=== PATIENT | female | born 1970 | race Caucasian/White ===

== ENCOUNTER 2021-09-22 12:17 | Outpatient (RCR) | payer BC, SELFPAY ==
[2021-09-22 12:33] VITALS: BP 133/88; PULSE 74; RESP 16; TEMP 36.4; O2SAT 97
[2021-09-22] MEDS: INFLIXIMAB IV (13:37)
[2021-09-22] MEDS: [UNRECOGNIZED DRUG - OTHER] IV (13:37)
[2021-09-22] MEDS: TUBING PRIMARY IV (13:37)
[2021-09-22 13:57] VITALS: BP 110/66; PULSE 74; RESP 16; TEMP 36.3; O2SAT 97
[2021-09-22 14:15] VITALS: BP 107/64; PULSE 76; RESP 16; TEMP 36.6; O2SAT 98
[2021-09-22 14:47] VITALS: BP 106/66; PULSE 75; RESP 18; TEMP 36.7; O2SAT 97
--- NOTE | 2021-09-23 10:38 | ONC.NURNOTE ---
Pt here for Remicade on 09/22/21, pt has had intentional weight loss. Ordered dose is 400mg, based on current weight, remicade dose would be 325mg. This would be rounded down to 300mg. Cost Clerk called and spoke to Dr. Mendes's office to clarify dose pt should receive. Per Dr. Mendes, pt to receive 400mg IV on 09/22/21. Future orders for remicade placed on hold as pt has an appt with Dr. Mendes on 10/04/2021.
== END 2021-10-16 23:59 | disposition home or self-care (01) ==
LOC: CCIC 12:17
PROVIDERS: PCP Family Medicine; Visit Provider Clinical Nurse Specialist
DX: K50.90 Crohn's disease, unspecified, without complications (principal)
CPT/HCPCS: 96413; 96415; J7050

== ENCOUNTER 2022-03-23 13:00 | Outpatient (RCR) | payer BC, SELFPAY ==
--- NOTE | 2021-11-14 08:36 | ONC.NURNOTE ---
Authorization: User: Shruthi AllenFer Savanah Date: 03/30/21 13:05 Type: Eligibility Determination Note... Per Dede Breaux at [facility], prior authorization is not required for the administration of Remicade ([id number]). Call ref # [id number] Remicade will be obtained from Specialty Pharmacy.
[2021-11-17 13:22] VITALS: BP 109/60; PULSE 98; RESP 16; TEMP 36.3; O2SAT 96
[2021-11-17] MEDS: TUBING PRIMARY IVPB (14:39)
[2021-11-17] MEDS: INFLIXIMAB IVPB (14:39)
[2021-11-17] MEDS: [UNRECOGNIZED DRUG - OTHER] IVPB (14:39)
[2021-11-17 15:02] VITALS: BP 97/64; PULSE 79; RESP 16; TEMP 36.9; O2SAT 98
[2021-11-17 15:31] VITALS: BP 91/52; PULSE 79; RESP 16; TEMP 36.7; O2SAT 98
[2021-11-17 15:51] VITALS: BP 108/54; PULSE 75; RESP 20; TEMP 36.7; O2SAT 97
[2021-11-17 16:35] VITALS: BP 107/67; PULSE 78; RESP 16; TEMP 37; O2SAT 98
--- NOTE | 2021-11-17 16:44 | ONC.NURNOTE ---
Pt here for Remicade. Clarified with Cinthya's office okay to treat with Remicade dose of 400mg despite weight loss. See documentation in chart from Cinthya's office. Pt has an appt with Cinthya in January for follow up. Continue same dose until then.
[2022-01-26 13:13] VITALS: BP 109/64; PULSE 93; RESP 16; TEMP 36.4; O2SAT 97
[2022-01-26] MEDS: [UNRECOGNIZED DRUG - OTHER] IV (13:45)
[2022-01-26] MEDS: TUBING PRIMARY IV (13:45)
[2022-01-26] MEDS: INFLIXIMAB IV (13:45)
[2022-01-26 14:05] VITALS: BP 96/66; PULSE 97; RESP 16; TEMP 36.7; O2SAT 97
[2022-01-26 14:20] VITALS: BP 94/60; PULSE 80; RESP 16; TEMP 36.9; O2SAT 98
[2022-01-26 14:50] VITALS: BP 99/64; PULSE 81; RESP 18; TEMP 36.8
[2022-01-26 15:31] VITALS: BP 94/62; PULSE 77; RESP 18; TEMP 36.7; O2SAT 97
--- NOTE | 2022-03-02 11:39 | URNOTE ---
Prior authorization is not required for administration of Infliximab. Medication is obtained from Specialty Pharmacy.
[2022-03-23 13:09] VITALS: BP 113/77; PULSE 83; RESP 16; TEMP 35.9; O2SAT 98
[2022-03-23] MEDS: INFLIXIMAB IVPB (13:37)
[2022-03-23] MEDS: TUBING PRIMARY IVPB (13:37)
[2022-03-23] MEDS: [UNRECOGNIZED DRUG - OTHER] IVPB (13:37)
[2022-03-23 13:59] VITALS: BP 111/61; PULSE 75; RESP 14; TEMP 36.1; O2SAT 98
[2022-03-23 14:15] VITALS: BP 107/73; PULSE 75; RESP 16; TEMP 36; O2SAT 98
[2022-03-23 14:46] VITALS: BP 103/60; PULSE 79; RESP 16; TEMP 36.1; O2SAT 96
[2022-03-23 15:34] VITALS: BP 104/71; PULSE 80; RESP 16; TEMP 36.1; O2SAT 99
== END 2022-05-16 23:59 | disposition home or self-care (01) ==
LOC: CCIC 13:00
PROVIDERS: PCP Family Medicine; Referring Provider Family Medicine; Visit Provider Clinical Nurse Specialist
DX: K50.90 Crohn's disease, unspecified, without complications (principal)
CPT/HCPCS: 96413; 96415; J2795; J7050

== ENCOUNTER 2022-09-21 13:00 | Outpatient (RCR) | payer BC, SELFPAY ==
[2022-05-18 13:08] VITALS: BP 128/73; PULSE 91; RESP 16; TEMP 36.3; O2SAT 98
[2022-05-18] MEDS: 0.9 % SODIUM CHLORIDE 250 ml 250 ML 30 ML IV (13:34)
[2022-07-20 13:07] VITALS: BP 124/85; PULSE 101; RESP 16; TEMP 36.3; O2SAT 96
[2022-07-20] MEDS: TUBING PRIMARY IVPB (13:45)
[2022-07-20] MEDS: [UNRECOGNIZED DRUG - OTHER] IVPB (13:45)
[2022-07-20] MEDS: INFLIXIMAB IVPB (13:45)
[2022-07-20 14:05] VITALS: BP 122/73; PULSE 92; RESP 16; TEMP 36.8; O2SAT 97
[2022-07-20 14:57] VITALS: BP 124/80; PULSE 88; RESP 16; TEMP 36.6; O2SAT 96
[2022-07-20 15:45] VITALS: BP 131/82; PULSE 86; RESP 16; TEMP 36.7; O2SAT 98
[2022-09-21 13:09] VITALS: BP 113/71; PULSE 88; RESP 16; TEMP 35.7; O2SAT 97
[2022-09-21] MEDS: 0.9 % SODIUM CHLORIDE 250 ml 250 ML 35 ML IV (13:10)
[2022-09-21] MEDS: TUBING PRIMARY IVPB (13:42)
[2022-09-21] MEDS: INFLIXIMAB IVPB (13:42)
[2022-09-21] MEDS: [UNRECOGNIZED DRUG - OTHER] IVPB (13:42)
[2022-09-21 14:00] VITALS: BP 102/68; PULSE 87; RESP 16; TEMP 36.6; O2SAT 98
[2022-09-21 14:17] VITALS: BP 119/63; PULSE 75; RESP 18; TEMP 36.3; O2SAT 96
[2022-09-21 14:50] VITALS: BP 95/67; PULSE 80; RESP 18; TEMP 36.7; O2SAT 96
[2022-09-21 15:38] VITALS: BP 119/75; PULSE 76; RESP 18; TEMP 36.2; O2SAT 98
== END 2022-11-14 23:59 | disposition home or self-care (01) ==
LOC: CCIC 13:00
PROVIDERS: PCP Family Medicine; Referring Provider Family Medicine; Visit Provider Clinical Nurse Specialist
DX: K50.90 Crohn's disease, unspecified, without complications (principal)
CPT/HCPCS: 96413; 96415; J7050

== ENCOUNTER 2023-03-23 13:00 | Outpatient (RCR) | payer BC, SELFPAY ==
[2022-11-23 13:17] VITALS: BP 136/78; PULSE 84; RESP 16; TEMP 36.3; O2SAT 99
[2022-11-23] MEDS: [UNRECOGNIZED DRUG - OTHER] IV (13:47)
[2022-11-23] MEDS: INFLIXIMAB IV (13:47)
[2022-11-23] MEDS: TUBING PRIMARY IV (13:47)
[2022-11-23 14:05] VITALS: BP 108/69; PULSE 84; RESP 16; TEMP 36.9; O2SAT 98
[2022-11-23 14:25] VITALS: BP 112/77; PULSE 83; RESP 16; TEMP 36.8; O2SAT 99
[2022-11-23 14:58] VITALS: BP 121/70; PULSE 82; RESP 16; TEMP 36.9; O2SAT 99
[2022-11-23 15:38] VITALS: BP 113/78; PULSE 85; RESP 16; TEMP 37.1; O2SAT 98
--- NOTE | 2022-11-23 15:51 | ONC.NURNOTE ---
Patient tolerated Remicade without difficulties. Faxed Remicade assessment to Dr. Mendes. Next appointment set up.
--- NOTE | 2023-01-18 08:39 | ONC.NURNOTE ---
Received call from pharmacy stating pt's drug did not arrive yesterday as planned. Per pharmacy, PA may have . Excel Specialist called and spoke to Veronica in Dr. Mendes's office with update. She is going to call [facility] Specialty pharmacy for next steps. Pt notified that drug did not arrive.
--- NOTE | 2023-01-18 09:51 | ONC.NURNOTE ---
Received call from Veronica with Dr. Mendes stating that patient will be seeing Dr. Mendes and then they will submit a new PA and expedite it since the old one was cancelled out and patient late for infusion. Dr. Mendes's office will call when new PA in effect.
--- NOTE | 2023-01-25 08:52 | ONC.NURNOTE ---
Addendum entered by Geneva Campos RN 01/25/23 10:17: Physical Education Department Chair called [facility] specialty pharmacy to confirm delivery of medication for 01/26/23. Left message for pt to call and schedule infusion. Original Note: Received call from Dr. Mendes's office stating a PA was done. Approval #[id number], approved 01/18/2023-01/19/2024. Physical Education Department Chair will update pharmacy to contact [facility] specialty pharmacy to set up delivery.
[2023-01-26 13:38] VITALS: BP 133/75; PULSE 93; RESP 18; TEMP 36.4; O2SAT 97
[2023-01-26] MEDS: [UNRECOGNIZED DRUG - OTHER] IV (13:57)
[2023-01-26] MEDS: TUBING PRIMARY IV (13:57)
[2023-01-26] MEDS: INFLIXIMAB IV (13:57)
[2023-01-26 14:31] VITALS: BP 137/80; PULSE 92; RESP 18; TEMP 36.4; O2SAT 95
[2023-01-26 14:35] VITALS: BP 108/73; PULSE 92; RESP 16; TEMP 36.1; O2SAT 96
[2023-01-26 15:08] VITALS: BP 112/67; PULSE 93; RESP 16; TEMP 36.8; O2SAT 97
--- NOTE | 2023-03-01 09:41 | URNOTE ---
Prior authorization is not required for administration of Infliximab. Medication is obtained from Specialty Pharmacy.
[2023-03-23 13:15] VITALS: BP 120/76; PULSE 81; RESP 16; TEMP 35.8; O2SAT 99
[2023-03-23] MEDS: INFLIXIMAB IV (13:46)
[2023-03-23] MEDS: TUBING PRIMARY IV (13:46)
[2023-03-23] MEDS: [UNRECOGNIZED DRUG - OTHER] IV (13:46)
[2023-03-23 14:23] VITALS: BP 112/78; PULSE 79; RESP 16; TEMP 36.3; O2SAT 95
[2023-03-23] MEDS: 0.9 % SODIUM CHLORIDE 250 ml 250 ML 35 ML IV (14:56)
== END 2023-05-22 23:59 | disposition home or self-care (01) ==
LOC: CCIC 13:00
PROVIDERS: PCP Family Medicine; Referring Provider Family Medicine; Visit Provider Clinical Nurse Specialist
DX: K50.90 Crohn's disease, unspecified, without complications (principal)
CPT/HCPCS: 96413; 96415; J7050

== ENCOUNTER 2023-09-19 13:00 | Outpatient (RCR) | payer BC, SELFPAY ==
[2023-05-25 13:19] VITALS: BP 125/86; PULSE 92; RESP 16; TEMP 36.1; O2SAT 96
[2023-05-25] MEDS: TUBING PRIMARY IV (13:44)
[2023-05-25] MEDS: [UNRECOGNIZED DRUG - OTHER] IV (13:44)
[2023-05-25] MEDS: INFLIXIMAB IV (13:44)
[2023-05-25 14:20] VITALS: BP 103/66; PULSE 83; RESP 16; TEMP 36.3; O2SAT 96
[2023-05-25 14:55] VITALS: BP 127/75; PULSE 86; RESP 16; TEMP 36.2; O2SAT 95
[2023-05-25 15:50] VITALS: BP 110/61; PULSE 79; RESP 16; TEMP 36.3; O2SAT 98
[2023-07-20 13:14] VITALS: BP 134/79; PULSE 90; RESP 16; TEMP 37; O2SAT 98
[2023-07-20] MEDS: [UNRECOGNIZED DRUG - OTHER] IV (13:50)
[2023-07-20] MEDS: TUBING PRIMARY IV (13:50)
[2023-07-20] MEDS: INFLIXIMAB IV (13:50)
[2023-07-20 14:10] VITALS: BP 120/83; PULSE 96; RESP 16; TEMP 36.6; O2SAT 97
[2023-07-20 14:30] VITALS: BP 113/74; PULSE 90; RESP 16; TEMP 36.5; O2SAT 94
[2023-07-20 14:58] VITALS: BP 105/68; PULSE 84; RESP 16; TEMP 36.3; O2SAT 94
[2023-09-19 13:15] VITALS: BP 121/76; PULSE 90; RESP 16; TEMP 36.3; O2SAT 97
[2023-09-19] MEDS: [UNRECOGNIZED DRUG - OTHER] IVPB (13:43)
[2023-09-19] MEDS: TUBING PRIMARY IVPB (13:43)
[2023-09-19] MEDS: 0.9 % SODIUM CHLORIDE 250 ml 250 ML 35 ML IV (13:43)
[2023-09-19] MEDS: INFLIXIMAB IVPB (13:43)
[2023-09-19 14:01] VITALS: BP 105/70; PULSE 84; RESP 16; TEMP 36.6; O2SAT 94
[2023-09-19 14:16] VITALS: BP 98/63; PULSE 82; RESP 16; TEMP 36.1; O2SAT 95
[2023-09-19 14:49] VITALS: BP 110/75; PULSE 85; RESP 16; TEMP 36.3; O2SAT 96
--- NOTE | 2023-09-19 15:25 | ONC.NURNOTE ---
Faxed Remicade assessment to Dr. Mendes. Next appointment scheduled.
[2023-09-19 15:36] VITALS: BP 109/72; PULSE 77; RESP 16; TEMP 36.2; O2SAT 98
== END 2023-11-21 23:59 | disposition home or self-care (01) ==
LOC: CCIC 13:00
PROVIDERS: PCP Family Medicine; Referring Provider Family Medicine; Visit Provider Clinical Nurse Specialist
DX: K50.90 Crohn's disease, unspecified, without complications (principal)
CPT/HCPCS: 96365; 96413; 96415; J7050

== ENCOUNTER 2024-03-28 13:00 | Outpatient (RCR) | payer BC, SELFPAY ==
[2023-11-22 12:49] VITALS: BP 120/80; PULSE 90; RESP 16; TEMP 36.2; O2SAT 96
[2023-11-22] MEDS: INFLIXIMAB IV (13:39)
[2023-11-22] MEDS: [UNRECOGNIZED DRUG - OTHER] IV (13:39)
[2023-11-22] MEDS: TUBING PRIMARY IV (13:39)
[2024-01-24 13:15] VITALS: BP 115/80; PULSE 75; RESP 16; TEMP 36.1; O2SAT 98
[2024-01-24] MEDS: [UNRECOGNIZED DRUG - OTHER] IV (13:50)
[2024-01-24] MEDS: INFLIXIMAB IV (13:50)
[2024-01-24] MEDS: TUBING PRIMARY IV (13:50)
[2024-01-24 14:13] VITALS: O2SAT 97
--- NOTE | 2024-03-24 15:57 | URNOTE ---
Prior authorization is not required for administration of Infliximab. Medication is obtained from Specialty Pharmacy- [facility] to [facility] PA for specialty Pharmacy is active 01-17-24 to 12-24-24 per Rep Kristyn Allen 03/24/2024 at 1555pm.
[2024-03-28 13:13] VITALS: BP 114/71; PULSE 91; RESP 14; TEMP 36.3; O2SAT 96
[2024-03-28] MEDS: INFLIXIMAB IV (13:45)
[2024-03-28] MEDS: TUBING PRIMARY IV (13:45)
[2024-03-28] MEDS: [UNRECOGNIZED DRUG - OTHER] IV (13:45)
== END 2024-05-20 23:59 | disposition home or self-care (01) ==
LOC: CCIC 13:00
PROVIDERS: PCP Family Medicine; Referring Provider Family Medicine; Visit Provider Clinical Nurse Specialist
DX: K50.90 Crohn's disease, unspecified, without complications (principal)
CPT/HCPCS: 96413; 96415; J1745; J7050

== ENCOUNTER 2024-07-29 08:30 | Outpatient (RCR) | payer BC, SELFPAY ==
[2024-05-22 13:08] VITALS: BP 127/83; PULSE 94; RESP 16; TEMP 36.4; O2SAT 96
[2024-05-22] MEDS: [UNRECOGNIZED DRUG - OTHER] IV (13:25)
[2024-05-22] MEDS: INFLIXIMAB IV (13:25)
[2024-05-22] MEDS: TUBING PRIMARY IV (13:25)
[2024-05-22 13:46] VITALS: BP 114/76; PULSE 95; RESP 16; TEMP 36.6; O2SAT 96
[2024-05-22 14:40] VITALS: BP 113/75; PULSE 16; RESP 16; TEMP 36.5; O2SAT 96
[2024-07-29 08:33] VITALS: BP 144/75; PULSE 81; RESP 18; TEMP 35.9; O2SAT 96
[2024-07-29] MEDS: [UNRECOGNIZED DRUG - OTHER] IV (09:06)
[2024-07-29] MEDS: INFLIXIMAB IV (09:06)
[2024-07-29] MEDS: TUBING PRIMARY IV (09:06)
[2024-07-29] MEDS: SODIUM CHLORIDE 0.9 % (FLUSH) 10 ML SYRINGE IVF (09:07)
== END 2024-11-18 23:59 | disposition home or self-care (01) ==
LOC: CCIC 08:30
PROVIDERS: PCP Family Medicine; Referring Provider Family Medicine; Visit Provider Clinical Nurse Specialist
DX: K50.90 Crohn's disease, unspecified, without complications (principal)
CPT/HCPCS: 96413; J1745; J7050

== ENCOUNTER 2024-08-13 19:54 | Observation (INO) | payer BC, SELFPAY ==
[2024-08-13] VITALS (16 sets, daily range): BP systolic 114–140; BP diastolic 63–90; PULSE 86–114; RESP 20–22; TEMP 36.4–37.1; O2SAT 91–100; BMI 32.1
--- OUTSIDE RECORDS SUMMARY | 2024-08-13 19:56 | XMS_ITS | Clinical Summary ---
Author Organization [facility] Address [address] [place] [address] Care Team Providers Care Learning Coach Name Role Phone No Contact, Pcp Primary Care Provider Unavailabl e Source Comments Patient records contain information from all sites at [facility]. For routine questions regarding patient records, call [phone] during business hours, M-F 8:00 AM - 5:00 PM Central Time. Record requests for emergency care only can be directed to [phone] at any time.[facility] Allergies Active Allergy Reactions Criticality Noted Date Comments Adhesive Other (see comments) 06/15/2016 ADHESIVE TAPE. Blisters w/ steri-strips Cephalexin Hives (Reselect Reaction) 06/15/2016 CEPHALEXIN MONOHYDRATE Ciprofloxacin Hives (Reselect Reaction) 06/15/2016 CIPROFLOXACIN Latex Other (see comments) 09/21/2004 broke out from steri stripes and bandaides question if adhesives or latex Morphine Hives (Reselect Reaction) 06/15/2016 MORPHINE Sulfa (Sulfonamide Antibiotics) Diarrhea High 09/21/2004 Medications * This document contains information received from the source organization and may not represent a complete record from that organization. inFLIXimab (REMICADE) 10 mg/mL injection Remicade 100 mg intravenous injection See Instructions, 5 MG/KG INTRAVENOUSLY EVERY 8 WEEKS 4 Active valACYclovir (VALTREX) 500 mg tablet Take 500 mg by mouth. 7 Active mesalamine (CANASA) 1,000 mg suppository Insert 1,000 mg into the rectum. 7 Active biotin-silicon trwn-R-uhyapvsa 5,000 mcg -10 mg-50 mg tablet extended release Take by mouth. 7 Active vit P-J4-hnxdytwmdk blayne-vit K 2,000 unit- 2,000 mcg/mL liquid Take by mouth. 7 Active minoxidil (ROGAINE) 5 % topical foam Apply 1 application topically daily. Active spironolactone (ALDACTONE) 25 mg tablet Take 25 mg by mouth daily. Active gabapentin (NEURONTIN) 300 mg capsule Take 1 capsule by mouth daily. 2 Active naproxen (NAPROSYN) 500 mg tabletIndicatio ns:Injury Shoulder Initial Right,History Of Falling Take 1 tablet (500 mg total) by mouth 2 (two) times a day as needed for pain (pain). 20 tablet 3 Active nystatin (NYSTOP) 100,000 unit/gram powder Apply 1 strip topically. 3 Active estradioL (ESTRACE) 0.5 mg tablet Take 0.5 mg by mouth. 3 Active lidocaine (LIDODERM) 5 % adhesive patch,medicated Place 1 patch on the skin daily. Apply to right shoulder. 30 patch 4 Active Additional Information Patient not taking.Reported on 06/25/2023 ketoconazole (Nizoral) 2 % creamIndication s:Intertrigo Apply 1 Application topically 2 (two) times a day. Apply to rash. 60 g 5 Active Active Problems Problem Noted Date Diagnosed Date Pain Shoulder Right 11/13/2019 Overview (11/13/2019): Added automatically from request for surgery [id number] Rotator Cuff Disorder Right 11/13/2019 Overview (11/13/2019): Added automatically from request for surgery [id number] Numbness Hand Pain Wrist Right Crohn's Disease Immunizations Immunization Administration Dates Next Due H1N1 Inj 01/13/2009 Influenza TIV (IM) 12/17/2018,12/17/2011, 004 Influenza, Injectable, Quadrivalent 01/17/2017 Influenza, Unspecified 12/24/2015,2014,12/17/2013,2012 MMR 08/02/1989 PCV13 01/30/2014 PPSV23 02/13/2012,03/19/2004 SARS-COV-2 (COVID-19) - MODE RNA (12 YEARS AND OLDER) Fall Seasonal 01/24/2024 SARS-COV-2 (COVID-19) - PFIZ ER (Discontinued)(12 years or older) 12/09/2020,04/30/2020,04/08/2020 Tdap 02/13/2012 influenza trivalent vaccine (6 months and older)(PF) 01/01/2024 influenza vaccine quad (FLUZONE/FLUARIX) (6 months and older)(PF) 01/17/2023,01/19/2022,12/22/2020,2018,01/17/2017 Family History Medical History Relation Name Comments Anesthesia problems Neg Hx Social History Tobacco Use Types Packs/Day Years Used Date Smoking Tobacco: Never Smokeless Tobacco: Never Tobacco Cessation:Counseling Given: Not Answered Alcohol Use Standard Drinks/Week Comments Not Currently 0 (1 standard drink = 0.6 oz pur e alcohol) Humiliation, Afraid, Rape, and Kick questionnair e Answer Date Recorded Within the last year, have y ou been afraid of your partner or ex-partner? No 12/21/2019 Within the last year, have y ou been humiliated or emotionally abused in other ways by your partner or ex-partner? No Within the last year, have y ou been kicked, hit, slapped, or otherwise physically hurt by your partner or ex-partner? No 12/21/2019 Within the last year, have y ou been raped or forced to have any kind of sexual activity by your partner or ex-partner? No 12/21/2019 Social Connection and Isolation Panel [NHANES] A nswer Date Recorded In a typical week, how many times do you talk on the phone with family, friends, or neighbors? Patient declined 12/21/2019 How often do you get togethe r with friends or relatives? Patient declined 12/21/2019 How often do you attend mormon or jewish serv ices? Patient declined 12/21/2019 Do you belong to any clubs o r organizations such as mormon groups, unions, fraternal or athletic groups, or school groups? Patient declined 12/21/2019 How often do you attend meet ings of the clubs or organizations you belong to? Patient declined 12/21/2019 Are you , , di vorced, , never , or living with a partner? 12/21/2019 AUDIT-C Answer Date Recorded Q1: How often do you have a drink containing alc ohol? Monthly or less 12/21/2019 Q2: How many drinks containi ng alcohol do you have on a typical day when you are drinking? 1 or 2 12/21/2019 Q3: How often do you have si x or more drinks on one occasion? Never 12/21/2019 Overall Financial Resource Strain (CARDIA) Answe r Date Recorded How hard is it for you to pa y for the very basics like food, housing, medical care, and heating? Not hard at all 12/21/2019 PHQ-2 Answer Date Recorded PHQ-2 Score 0 11/17/2019 [facility] - Occupational Stress Questionnaire Answer Date Recorded Do you feel stress - tense, restless, nervous, or anxious, or unable to sleep at night because your mind is troubled all the time - these days? Not at all 12/21/2019 Exercise Vital Sign Answer Date Recorde d On average, how many days pe r week do you engage in moderate to strenuous exercise (like a brisk walk)? 0 days On average, how many minutes do you engage in exercise at this level? Patient declined 12/21/2019 Hunger Vital Sign Answer Date Recorded Within the past 12 months, y ou worried that your food would run out before you got the money to buy more. Never true 12/21/19 20 Within the past 12 months, t he food you bought just didn't last and you didn't have money to get more. Never true 12/21/2019 PRAPARE - Transportation Answer Date Re corded In the past 12 months, has l ack of transportation kept you from medical appointments or from getting medications? No 06/2019 In the past 12 months, has l ack of transportation kept you from meetings, work, or from getting things needed for daily living? No 12/21/2019 Nutrition Answer Date Recorded Nutrition: EVOO Fat Source Yes 12/20 On average, how many serving s of fruits and vegetables do you eat per day (serving size is equal to 1 cup or approximately the size of a tennis ball)? 2-3 12/21/2019 Dental Answer Date Recorded Dental: Regular Dentist Unknown 12/22/19 Education Answer Date Recorded What is the highest level of school you have completed or the highest degree you have received? Associate degree: occupational, technical, or vocational program 12/21/2019 Comments No Sex and Gender Information Value Date Recorded Sex Assigned at Not on file Legal Sex Female 6:24 PM GAS USAGE METER CLERK Gender Identity Not on file Sexual Orientation Not on file Last Filed Vital Signs Vital Sign Reading Time Taken Comments Blood Pressure 125/79 01/31/2024 3:35 PM GAS USAGE METER CLERK Pulse 80 01/31/2024 3:35 PM GAS USAGE METER CLERK Temperature 36.3 C (97.3 F) 01/31/2024 2:36 PM GAS USAGE METER CLERK Respiratory Rate 19 01/31/2024 3:35 PM GAS USAGE METER CLERK Oxygen Saturation 99% 01/31/2024 3:35 PM GAS USAGE METER CLERK Inhaled Oxygen Concentration - - Weight 73.7 kg (162 lb 7.7 oz) 11/15/2022 8:31 A M CDT Height 160 cm (5' 2.99) 06/15/2022 10:34 AM CDT Body Mass Index 28.79 06/15/2022 10:34 AM CDT Plan of Treatment Health Maintenance Due Date Last Done Comments CT Colonography 1968 Cologuard 1968 HIV Screening 1968 Hepatitis C Screening 1968 Hepatitis B Vaccines (1 of 3 - 19+ 3-dose series) 1987 Zoster Vaccines (1 of 2) 1987 Pneumococcal vaccine (50+ years) (4 of 4 - PCV20 or PCV21) 01/30/2019 01/30/2014, 02/13/2012, 03/19/2004 Depression Screening (Annual PHQ-2) 03/19/2024 COVID-19 Vaccine (6 - Pfizer risk 2023- season) 2024 01/24/2024, 10/06/2021, 12/09/2020, Additional history exists Mammogram 09/11/2024 09/12/2023, 07/0 05/2022, 09/16/2021, Additional history exists Colonoscopy 10/04/2026 10/04/2021 Colorectal Cancer Surveillance 10/04/2026 Fasting Glucose for Diabetes Screening 01/01/2027 01/02/2024, 01/02/2024, 11/01/2022, Additional history exists Lipid (Cholesterol) Screening 01/01/2029 01/02/2024, 02/24/2021 DTaP,Tdap,and Td Vaccines (3 - Td or Tdap) 10/03/2033 10/04/2023, 02/13/2012 Influenza Vaccine Completed 01/01/2024, , 01/19/2022, Additional history exists HPV Vaccines Aged Out No longer eligi ble based on patient's age to complete this topic IPV Vaccines Aged Out No longer eligi ble based on patient's age to complete this topic Medical Devices Implanted Type Area Ore Fielder Device Identifier Shelf Expiration Date Model / Serial / Lot Anna Sut Ftp 4.5 - [id number] Implanted:Qty: 1 on 11/26/2019 by Deepak Carr M.D. at [facility] Hardware e.g. pins/screw s/rods Right: Shoulder [employer] 08/22/2024 [id number] / / [id number] Anna Sut [facility] Dbl 4.75 - [id number] Implanted:Qty: 1 on 11/26/2019 by Deepak Carr M.D. at [facility] Hardware e.g. pins/screw s/rods Right: Shoulder [employer] 09/18/2022 [id number] / / [id number] Anna Sut Hl Dbl 4.75 - [id number] Implanted:Qty: 1 on 11/26/2019 by Deepak Carr M.D. at [facility] Hardware e.g. pins/screw s/rods Right: Shoulder [employer] 09/18/2022 [id number] / / [id number] Anna Sut Ftp 4.5 - [id number] Implanted:Qty: 1 on 11/26/2019 by Deepak Carr M.D. at [facility] Hardware e.g. pins/screw s/rods Right: Shoulder [employer] 05/16/2024 [id number] / / [id number] Anna Sut [facility] Dbl 4.75 - [id number] Implanted:Qty: 1 on 11/23/2021 by Deepak Carr M.D. at [facility] Hardware e.g. pins/screw s/rods Right: Shoulder [employer] 11/26/2023 [id number] / / [id number] Anch Sut [facility] Dbl 4.75 - [id number] Implanted:Qty: 1 on 11/23/2021 by Deepak Carr M.D. at [facility] Hardware e.g. pins/screw s/rods Right: Shoulder [employer] 07/09/2024 [id number] / / [id number] Anch Bn Arth Del Sys - [id number] Implanted:Qty: 1 on 11/15/2022 by Deepak Carr M.D. at [facility] Hardware e.g. pins/screw s/rods Right: Shoulder [employer] [id number] 01/08/2025 [id number] / / [id number] Anch Tndn Rgn Stpl - [id number] Implanted:Qty: 1 on 11/15/2022 by Deepak Carr M.D. at [facility] Hardware e.g. pins/screw s/rods Right: Shoulder [employer] [id number] 06/02/2023 [id number] / / [id number] Healicoil Knotless Regnesorb Suture [place] 5.5mm Implanted:Qty: 1 on 11/23/2021 by Deepak Carr M.D. at [facility] Shoulder Implant Right: Shoulder [employer] [id number] 09/30/2024 [id number] / / [id number] Healicoil Knotless Regnesorb Suture [place] 5.5mm Implanted:Qty: 1 on 11/23/2021 by Deepak Carr M.D. at [facility] Shoulder Implant Right: Shoulder [employer] [id number] 09/30/2024 [id number] / / [id number] Healicoil Knotless Regnesorb Suture [place] 5.5mm Implanted:Qty: 1 on 11/23/2021 by Deepak Carr M.D. at [facility] Shoulder Implant Right: Shoulder [employer] [id number] 09/30/2024 [id number] / / [id number] Mini Open Bioinductive Implant, Large Implanted:Qty: 1 on 11/15/2022 by Deepak Carr M.D. at [facility] Shoulder Implant Right: Shoulder [employer] 01/08/2025 [id number] / / [id number] Procedures Procedure Name Priority Date/Time Associated Diagnosis Comments HEMOGLOBIN A1C, B Routine 01/02/2024 7:0 1 AM CDT Gain Weight Nutritional Disorder Screening Exam Obesity, Class 1 Body Mass Index 31.0 To 31.9 Adult LIPID PANEL, S Routine 01/02/2024 7:01 AM CDT Gain Weight Nutritional Disorder Screening Exam Obesity, Class 1 Body Mass Index 31.0 To 31.9 Adult BI BREAST SCREENING BILATERAL WITH TOMOSYNTHESIS RAD - Routine (most inpatients and all outpatients) 09/12/2023 12:57 PM CDT Screening Mammogram Average Risk Patient from Last 3 Months or Most Recently Relevant to Health Maintenance Results * (ABNORMAL) Lipid Panel (01/02/2024 7:01 AM CDT) Triglycerides 152(H) mg/dL 01/02/2024 7:36 AM CDT [facility] Comment: ----REFERENCE VALUE---- Normal: <150 mg/dL Borderline High: 150-199 mg/dL High: 200-499 mg/dL Very High: > or =500 mg/dL Cholesterol, Total 170 mg/dL 2023 7:36 AM CDT [facility] Comment: ----REFERENCE VALUE---- Desirable: < 200 mg/dL Borderline High: 200 - 239 mg/dL High: > or = 240 mg/dL Cholesterol, LDL, Calculated 89 mg/dL 01/02/2024 7:36 AM CDT [facility] Comment: ----REFERENCE VALUE---- Desirable: <100 mg/dL Above Desirable: 100-129 mg/dL Borderline High: 130-159 mg/dL High: 160-189 mg/dL Very High: >=190 mg/dL ----ADDITIONAL INFORMATION---- LDL cholesterol calculated using the Hines/NIH equation. Cholesterol, HDL 55 >=50 mg/dL 01/02/20 7:36 AM CDT [facility] Cholesterol, Non-HDL, Calculated 115 mg/dL 01/02/2024 7:36 AM CDT [facility] Comment: ----REFERENCE VALUE---- Desirable: <130 mg/dL Above Desirable: 130-159 mg/dL Borderline High: 160-189 mg/dL High: 190-219 mg/dL Very High: > or =220 mg/dL Fasting (8 HR or more) Yes 01/02/2024 7:01 AM CDT [facility] Blood (Blood, Venous) 01/02/2024 7:01 AM CDT 01/02/2024 7:03 AM CDT Maribell Spear P.A.-C. LAB BLOOD ADD-ON Final Re sult Performing Organization Address City/[facility]/ZIP Co de Phone Number [facility] [address] [place] [address], [facility] [place] [address] [place] [address], [place] [address] * Hemoglobin A1c (01/02/2024 7:01 AM CDT) Hemoglobin A1c, B 5.6 4.2 - 5.6 % 01/02/2024 7:22 AM CDT [facility] Blood (Blood, Venous) 01/02/2024 7:01 AM CDT 01/02/2024 7:03 AM CDT Maribell Spear P.A.-C. LAB BLOOD ADD-ON Final Re sult [facility] [address] [facility] [address], [facility] [place] [address] [place] [address] [facility] [place] [address] * BI Breast Screening Bilateral with Tomosynthesis (09/12/2023 12:57 PM CDT) Anatomical Region Laterality Modality Breast, Breast Imaging RST L OS, Breast Imaging ARZ LOS, Breast Imaging FLA LOS Bilateral Mammography Impressions 09/13/2023 9:33 AM CDT Negative. RECOMMENDATION: Annual Screening Mammogram ASSESSMENT: BI-RADS: 1: Negative. Narrative 09/13/2023 9:33 AM CDT EXAM: BI BREAST SCREENING BILATERAL WITH TOMOSYNTHESIS Current study was evaluated with a Computer Aided Detection (CAD) system. INDICATION: Screening mammogram. COMPARISON: Prior exam(s) were available and reviewed for comparison. DENSITY: c. The breast(s) are heterogeneously dense, which may obscure small masses. FINDINGS: No findings of malignancy. No significant change since prior exam. Procedure Note Trupti Breaux M.D. - 09/13/2023 EXAM: BI BREAST SCREENING BILATERAL WITH TOMOSYNTHESIS Current study was evaluated with a Computer Aided Detection (CAD) system. INDICATION: Screening mammogram. COMPARISON: Prior exam(s) were available and reviewed for comparison. DENSITY: c. The breast(s) are heterogeneously dense, which may obscuresmall masses. FINDINGS: No findings of malignancy. No significant change since priorexam. IMPRESSION: Negative. RECOMMENDATION: Annual Screening Mammogram ASSESSMENT: BI-RADS: 1: Negative. Alysia Buck M.D. IM BI PROCEDURES Final R esult from Last 3 Months or Most Recently Relevant to Health Maintenance Insurance [facility] ISABELLA SON [id number] Care Teams Learning Coach Relationship Specialty Start Date End Date No Contact, Pcp PCP - General Family Medicine 04/08/20
--- OUTSIDE RECORDS SUMMARY | 2024-08-13 19:56 | XMS_ITS | CCD ---
Author Name Interface, [id number] lity Address [address] [place] [address] [facility] Address [facility] [address] [place] [address] Care Team Providers Care Receptionist Name Role Phone Bambi Serrano Unavailable Unavailab le Reason for Visit Social History
--- OUTSIDE RECORDS SUMMARY | 2024-08-13 19:56 | XMS_ITS | Clinical Summary ---
Author Organization [facility] Address [address] [place] [id number] Care Team Providers Care Wire Roller Name Role Phone Alysia Buck MD Primary Care Provide r María Quick RD Unavailable [phone] Maribell Spear PA Unavailable [phone] Allergies Active Allergy Reactions Criticality Noted Date Comments Adhesive Other - Describe In Comment Field 06/15/2016 ADHESIVE TAPE. Blisters w/ steri-strips Adhesive Tape Contact Dermatitis 09/21/2004 tegaderm , paper tape and silk tape ok.. Can not use foam tape and steristrips-gets skin burn Ciprofloxacin Hives 09/21/2004 Cephalexin Hives 09/21/2004 Latex Contact Dermatitis 09/21/2004 broke out from steri stripes and bandaides question if adhesives or latex Morphine Hives 09/21/2004 Sulfa (Sulfonamide Antibiotics) Diarrhea High 09/21/2004 Medications biotin-silicon jwnd-R-hqyzqvzp 5,000 mcg -10 mg-50 mg TbER Take by mouth. 0 05/03/19 17 Active Minoxidil 5 % foam Apply topically to affected area(s). Active spironolactone (ALDACTONE) 50 mg tablet TAKE ONE TABLET DAILY WITH A FULL GLASS OF WATER. 10/24/19 20 Active nystatin powder (MYCOSTATIN) powderIndication s:Intertrigo Apply 1 Strip topically to affected area(s) three times daily. 60 g 3 09/15/19 23 Active ketoconazole 2% shampoo (NIZORAL) 2 % shampoo WASH SCALP 2X WEEKLY, LATHER AND LET SIT 3-5MIN, THEN RINSE. 07/06/19 24 Active cholecalciferol (VITAMIN D3) 2,000 unit capsule Take 2,000 units by mouth once daily. Active gabapentin (NEURONTIN) 300 mg capsuleIndicatio ns:Hot flashes due to menopause Take 1 Capsule (300 mg) by mouth at bedtime. 90 Capsule 3 10/04/19 24 Active inFLIXimab (Remicade) 100 mg injectionIndicat ions:Crohn's disease of both small and large intestine without complication (HC) INFUSE 400 MG INTRAVENOUSLY EVERY 8 WEEKS 40 mL 6 02/28/20 24 Active benzonatate (TESSALON) 100 mg capsuleIndicatio ns:Acute cough Take 1 Capsule (100 mg) by mouth 3 times daily if needed for Cough. 30 Capsule 04/14/19 25 Active Active Problems Problem Noted Date Diagnosed Date Crohn's disease of both smal l and large intestine without complication 05/02/2017 Herpes simplex type 1 infection 04/12/2017 Chronic SI joint pain 04/12/2017 Unspecified mastoiditis Overview (09/17/2007): repair august 2006 Resolved Problems Problem Noted Date Diagnosed Date Resolved Date Metrorrhagia 02/16/2012 10/13/2014 Dysmenorrhea 09/26/2007 10/13/2014 Intramural leiomyoma of uterus 10/13/2014 Encounters Date Type Department Care Team Description 07/23/2024 Telephone [facility] [address] [place] [address] Jose Angel Mendes MD Questions (concerns ) from Last 3 Months Immunizations Immunization Administration Dates Next Due COVID-19 vaccine ([employer] NTJobr 30mcg/0.3mL) 12YO+ MECHELLE-SUCROSE LAVELL BASS 10/06/2021 INFLUENZA, IIV3 PF (AGE >= 6 MO) 01/01/2024 Influenza A (H1N1), Inactiva abdi (Age >=3 Years) 01/13/2009 Influenza Virus, Unspecified 12/17/2018, 12/26/2017,12/18/2015,2014,12/17/2013,11/24/2012,12/17/2011,1 ,12/29/2003 Influenza, IIV3 (Age 6-35 mos) 4,12/04/2012,12/07/2011,2010 Influenza, IIV3 (Age >=3 years) 12/17/2018,12/16,12/29/2003 Influenza, IIV4 01/17/2023, 2,12/22/2020,2018,12/26/2017,01/17/2017 MMR 08/02/1989 Pneumococcal Poly,23-Valent (Pneumovax) 02/13/2012,03/19/2004 Pneumococcal conj 13-Valent (Prevnar 13) 01/30/2014 Td (Age >=7 Years) 09/03/1997 Tdap 10/04/2023,02/13/2012 Family History Medical History Relation Name Comments Good Health Brother 2 Good Health Father Heart Disease Father Ischemic heart disease. s/p stents Cancer-colon Maternal Aunt 1 DX: 41 Other Maternal Aunt 2 Eating disor jude Heart Disease Maternal Grandmother CHF Cancer-colon Maternal Uncle rectal ca DX: 70 COPD Mother Alcoholism Other 1 Cancer-colon Other 3 colon ca Diabetes Paternal Grandmother Type 2 Other Paternal Grandmother Alzheim er's Good Health Sister 3 Good Health Sister 4 Cancer-breast No Family History Cancer-ovarian No Family History Cancer-prostate No Family History Relation Name Status Comments Brother 1 Alive Brother 2 Father Alive Maternal Aunt 1 Maternal Aunt 2 Maternal Grandmother Maternal Uncle rectal ca Alive Mother Alive Other 1 Alive Other 2 Other 3 colon ca Alive Paternal Grandmother Sister 1 Alive Sister 2 Alive Sister 3 Sister 4 Social History Tobacco Use Types Packs/Day Years Used Date Smoking Tobacco: Never Smokeless Tobacco: Never Tobacco Cessation:Counseling Given: Yes Alcohol Use Standard Drinks/Week Comments Yes 0 (1 standard drink = 0.6 oz pur e alcohol) PHQ-2 Answer Date Recorded PHQ-2 TOTAL SCORE 1 10/04/2023 Social Connections Answer Date Recorded Do you often feel lonely or isolated from those around you? 0 07/25/2023 Financial Resource Strain Answer Date R ecorded Difficulty of Paying Living Expenses 3 07/25/2023 Difficulty of Paying Living Expenses Not on file 07/25/2023 Food Insecurity Answer Date Recorded Do you worry your food will run out before you are able to buy more? 1 07/25/2023 Transportation Needs Answer Date Record ed Does lack of transportation keep you from medica l appointments? 1 07/25/2023 Does lack of transportation keep you from work, meetings or getting things that you need? 1 07/25/2023 Housing Stability Answer Date Recorded What is your housing situation today? 1 07/25/2023 Utilities Answer Date Recorded Do you have trouble paying f or utilities (for example, heat, electricity, water, phone)? 1 07/25/2023 Comments No Sex and Gender Information Value Date Recorded Sex Assigned at Female 10/02/2021 7:16 PM CDT Legal Sex Female 5:24 AM DYE TUB OPERATOR Gender Identity Female 10/02/2021 7:16 PM CDT Sexual Orientation Straight 10/02/2021 7: 16 PM CDT Occupation Industry Job Start Date Job End Date Not on file Not on file Not on file Not on file Obstetrics History Para Term AB IAB SAB Ectopic Multiple Livin g Live Births 4 3 2 1 1 1 0 0 3 3 Date Outcome GA Total Labor Labor/2nd/3rd Weight Sex Type Anes PTL Maribel A1 A5 Name Clin 993 Term 39w 0d 3.15 kg (6 lb 15 oz) F Vag Livin g Kinga Delivery Location:[facility] 994 IAB 11w 0d 996 Term 38w 0d 3.06 kg (6 lb 12 oz) F Vag Livin g Marco A Delivery Location:[facility] 004 36w 0d 2.95 kg (6 lb 8 oz) F Vag Livin g Samant jackson Delivery Location:[place] Last Filed Vital Signs Vital Sign Reading Time Taken Comments Blood Pressure 104/64 04/14/2024 8:50 AM DYE TUB OPERATOR Pulse 90 04/14/2024 8:50 AM DYE TUB OPERATOR Temperature 36.9 C (98.5 F) 04/14/2024 8:50 AM DYE TUB OPERATOR Respiratory Rate 16 01/18/2023 12:26 PM CDT Oxygen Saturation 98% 04/14/2024 8:50 AM DYE TUB OPERATOR Inhaled Oxygen Concentration - - Weight 77.6 kg (171 lb) 04/14/2024 8:50 AM DYE TUB OPERATOR Height 160 cm (5' 3) 04/14/2024 8:50 AM DYE TUB OPERATOR Body Mass Index 30.29 04/14/2024 8:50 AM DYE TUB OPERATOR Plan of Treatment Upcoming Encounters Date Type Department Care Team (Late st Contact Info) Description 08/29/2024 8:00 AM CDT Office Visit [facility] [address] [place] [address] Alysia Buck MD [address] [place] [address] Health Maintenance Due Date Last Done Comments HIV for age 15-65 1983 Hepatitis C screening for ag e 18-79 1986 Hepatitis B series for 19+ ( 1 of 3 - 19+ 3-dose series) 1987 Zoster (shingles) series for age 50+ (1 of 2) 1987 Pneumococcal series for age 50+ (3 of 3 - PCV20 or PCV21) 01/30/2019 01/30/2014, 02/13/2012, 03/19/2004 COVID-19 vaccine series (6 - Pfizer risk 2023- season) 2024 01/24/2024, 10/06/2021, 12/09/2020, Additional history exists Mammogram for age 45-75 09/11/2024 09/12/19 24, 09/18/2022, 09/16/2021, Additional history exists Depression screening for age 12+ 10/03/2024 10/04/2023, 09/14/2022, 10/06/2021, Additional history exists BMI (ht and wt on same day) for age 18+ 04/14/2025 04/14/2024, 12/25/2023, 12/20/2023, Additional history exists Lipids for age 45-75 02/24/2026 02/24/2021, 04/12/19 18 Colonoscopy through age 75 10/05/203110/04, 10/04/2021, 10/04/2021, Additional history exists Tetanus booster 10/03/2033 10/04/2023, 01/18, 09/03/1997 Tdap Completed 10/04/2023, 02/13/2012 Influenza Vaccine Completed 01/01/2024, , 01/19/2022, Additional history exists Procedures Procedure Name Priority Date/Time Associated Diagnosis Comments SCAN-MAMMOGRAPHY REPORT 09/12/2023 12:00 AM CDT COLONOSCOPY SCREENING Routine 10/04/2021 1:17 PM CDT Crohn's disease of small intestine without complication (HC) LIPID PANEL W REFLEX MEASURED LDL Routine 02/24/2021 9:28 AM DYE TUB OPERATOR Lipid screening from Last 3 Months or Most Recently Relevant to Health Maintenance Results * SCAN-MAMMOGRAPHY REPORT (09/12/2023 12:00 AM CDT) Anatomical Region Laterality Modality Other us Scanner OTHER Final Result * COLONOSCOPY (10/04/2021 1:16 PM CDT) 10/04/2021 1:16 PM CDT Narrative Transcriptions Jose Angel Mendes MD - 10/04/2021 2:41 PM CDT Patient Name: Adalberto Keene Procedure Date: 10/04/2021 Gender: Female Date of : 1970 Admit Type: Outpatient Procedure: Colonoscopy Proceduralist: Jose Angel Mendes MD , Cynthia Tovar, RN(Nurse) Referring MD: Jose Angel Mendes Indications/Pre-Op Diagnosis: Screening for colorectal malignant neoplasm, Last colonoscopy: August 2011, Personalhistory of Crohn's disease Medications: Fentanyl 200 micrograms IV, Midazolam 4 mgIV, The level of sedation administered wasmoderate Procedure Description: The patient had risks, benefits and alternatives explained to andgave informed consent. The patient had a stable cardiopulmonary status and judged an adequate candidate for conscious sedation. The [id number]-[id number] was passed through the anus and advanced to 12cm into the ileum. The colonoscopy was performed without difficulty. The patient tolerated the procedure well. The quality of the bowel preparation was good. The terminal ileum and the rectum were photographed. Complications: No immediate complications. Estimated Blood Loss & Specimen: Estimated blood loss: none. Specimen collected - None Findings: The perianal and digital rectal examinations were normal. The kathi-terminal ileum appeared normal. There was evidence of a prior end-to-side ileo-colonic anastomosis in the ascending colon. This was patent and was characterized by healthy appearing mucosa. The anastomosis was traversed. The colon (entire examined portion) was moderately redundant. Liquid stool was found in the entire colon, making visualization difficult. Lavage of the area was performed using a large amount of sterile water, resulting in clearance with adequate visualization. The exam was otherwise without abnormality. Impressions/Post-Op Diagnosis: - The examined portion of the ileum was normal. - Patent end-to-side ileo-colonic anastomosis, characterized byhealthy appearing mucosa. - Redundant colon. - Stool in the entire examined colon. - The examination was otherwise normal. - No specimens collected. Recommendation: - Patient has a contact number available for emergencies. The signsand symptoms of potential delayed complications were discussed with the patient. Return to normal activities tomorrow. Written discharge instructions were provided to the patient. - Resume previous diet. - Continue present medications. - Repeat colonoscopy in 10 years for screening purposes. - For future colonoscopy the patient will require an extended preparation, Peg 2 gallons. If there are any questions, pleasecontact the switch maker. - Miralax 1 capful (17 grams) in 8 ounces of water PO daily. Moderate Sedation: Moderate (conscious) sedation was administered by the endoscopy nurse and supervised by the endoscopist. The following parameters were monitored: oxygen saturation, heart rate, respiratory rate, blood pressure, adequacy of pulmonary ventilation and reponse to care. Please refer to the patient's medical record flowsheets and nursing notes for moderate sedation details. Total physician intraservice time was 32 minutes. Jose Angel Mendes MD 10/04/2021 2:41:29 PM This report has been signed electronically. Note Initiated On: 10/04/2021 1:16 PM Procedure Code(s): --- Professional --- 04109, Colonoscopy, flexible; diagnostic, including collection of specimen(s) bybrushing or washing, when performed (separateprocedure) Diagnosis Code(s): --- Professional --- Z12.11, Encounter for screening formalignant neoplasm of colon Z98.0, Intestinal bypass and anastomosisstatus Z87.19, Personal history of other diseasesof the digestive system Q43.8, Other specified congenitalmalformations of intestine CPT copyright 2020 [employer]. All rights reserved. The codes documented in this report are preliminary and upon die press operator reviewmay be revised to meet current compliance requirements. Scope In: 1:58:08 PM Scope Withdrawal Time 0 hours 14 minutes 39 seconds Scope Out: 2:26:41 PM us Jose Angel Mendes MD PROCEDURE ORD Final Res ult * LIPID PANEL W REFLEX MEASURED LDL (02/24/2021 9:28 AM DYE TUB OPERATOR) CHOLESTEROL,TOTAL 165 100 - 199 mg/dL 02/24/2021 3:49 PM DYE TUB OPERATOR [facility] TRIGLYCERIDES 136 <150 mg/dL 02/24/2021 3:49 PM DYE TUB OPERATOR [facility] HDL CHOLESTEROL 53 >40 mg/dL 3:49 PM DYE TUB OPERATOR [facility] NON-HDL CHOLESTEROL 112 <145 mg/dl 02/24/2021 3:49 PM DYE TUB OPERATOR [facility] CHOL/HDL RATIO 3.11 <4.50 02/24/2021 3:49 PM DYE TUB OPERATOR [facility] LDL CHOLESTEROL 85 <=130 mg/dL 02/24/2021 3:49 PM DYE TUB OPERATOR [facility] VLDL CHOLESTEROL 27 <=30 mg/dL 02/24/2021 3:49 PM DYE TUB OPERATOR [facility] PROVIDER ORDERED STATUS RANDOM 02/24/2021 3:49 PM DYE TUB OPERATOR [facility] Blood BLOOD SPECIMEN / Unknown Venipuncture / Unknown 02/24/2021 9:28 AM DYE TUB OPERATOR 02/24/2021 9:28 AM DYE TUB OPERATOR us Alysia Buck MD CHEMISTRY Final Result [facility] [address] [place] [address], from Last 3 Months or Most Recently Relevant to Health Maintenance Insurance [facility] Advance Directives * Full Code (Latest Code Status on File) Date Activated Date Inactivated Comments 02/15/2012 8:46 AM 02/16/2012 2:20 PM * Full Code Date Activated Date Inactivated Comments 09/26/2007 6:57 AM 09/29/2007 4:18 PM * Full Code Date Activated Date Inactivated Comments 09/22/2004 10:35 AM 09/22/2004 3:27 PM Care Teams Wire Roller Relationship Specialty Start Date End Date Alysia Buck MD [address] [place] [address] PCP - General Family Practice 02/13/[address] [place] [address] It Application Administrator 12/13/23 Maribell Spear PA [address] [place] [address] Physician Bricklayer'S Assistant 12/13/23
--- NOTE | 2024-08-13 20:21 | CRLHL7_ITS ---
For Patients: As a result of the Century Cures Act, medical imaging exams and procedure reports are released immediately into your electronic medical record. You may view this report before your referring provider. If you have questions, please contact your health care provider. INDICATION: Abdominal pain. History of Crohn`s. TECHNIQUE: CT abdomen and pelvis acquired with 89 cc Isovue 370 IV contrast. COMPARISON: CT abdomen pelvis 10/16/2013, abdominal radiographs 11/30/2020. FINDINGS: Lower chest: Unremarkable. Liver: Hepatic steatosis. Gallbladder and bile ducts: Cholecystectomy. No suspicious biliary dilatation. Pancreas: Unremarkable. Spleen: Unremarkable. Adrenal glands: Unremarkable. Kidneys: Symmetric renal enhancement. No hydronephrosis or hydroureter. No urinary calculi. GI tract: Multiple loops of mildly prominent fluid-filled small bowel with transition to collapsed small bowel loop within the right lower quadrant (series 2, image 79). Vasculature: Grossly patent vasculature. No abdominal aortic aneurysm. Lymph nodes: No suspicious lymphadenopathy. Peritoneum/Abdominal Wall: No ascites or pneumoperitoneum. No acute abdominal wall abnormality. Pelvis: Normal bladder. No suspicious adnexal mass. Bones: No acute abnormality. IMPRESSION: 1. Probable small bowel obstruction with transition point noted within the right lower quadrant. Please note that all CT scans at this facility use dose modulation, iterative reconstruction, and/or weight-based dosing when appropriate to reduce radiation dose to as low as reasonably achievable. Dictated by Phani Archibald MD @ 08/13/2024 10:07:38 PM (Electronically Signed)
--- NOTE | 2024-08-13 20:24 | ED.GENADULT ---
HPI - General Adult General Chief complaint: Nausea/Vomiting <Johnny Painter MD - Last Filed: 08/13/24 20:27> Stated complaint: vomiting <Johnny Painter MD - Last Filed: 08/13/24 20:27> Time Seen by Provider: 08/13/24 19:57 <Johnny Painter MD - Last Filed: 08/13/24 20:27> History of Present Illness HPI narrative: Patient is a 54 year white female history of Crohn's disease for which she is on treatment infliximab, presents with nausea vomiting diarrhea for few days. She has had a lot of stress with a family member dying recently. No blood in her stool. She reports it is strictly diarrhea. She has been vomiting as well. <Johnny Painter MD - Last Filed: 08/13/24 20:27> Related Data Home medications: Home Medications ?Medication ?Instructions ?Recorded ?Confirmed estradiol 0.5 mg tablet 0.5 mg PO DIRECTED 09/22/21 08/13/24 gabapentin 300 mg capsule 300 mg PO HS 09/22/21 08/14/24 ketoconazole 2 % shampoo 1 applic topical DIRECTED 09/22/21 08/13/24 spironolactone 50 mg tablet 50 mg PO DAILY 09/22/21 08/13/24 infliximab 100 mg intravenous 400 mg IV Q8W 08/13/24 08/14/24 solution (Remicade) biotin 1 mg capsule 1 mg PO DAILY 08/14/24 08/14/24 <Johnny Painter MD - Last Filed: 08/13/24 20:27> Allergies/adverse reactions: Allergies Allergy/AdvReac Type Severity Reaction Status Date / Time Cephalosporins Allergy Severe hives Verified 08/13/24 21:23 morphine Allergy Severe hives Verified 08/13/24 21:23 Quinolones Allergy Severe hives Verified 08/13/24 21:23 latex Allergy Severe blisters Uncoded 08/13/24 21:23 sulfa drugs Allergy Severe hives Uncoded 08/13/24 21:23 meperdine Allergy Intermediate reddened Uncoded 08/13/24 21:23 veins adhesives Allergy Mild Rash Uncoded 08/13/24 21:23 <Johnny Painter MD - Last Filed: 08/13/24 20:27> Review of Systems Status of ROS: Reports: 6 or more systems reviewed and unremarkable except as noted in History and below <Johnny Painter MD - Last Filed: 08/13/24 20:27> [facility] Medical History: Medical History Hair loss ?L65.9 - Nonscarring hair loss, unspecified (ICD-10) Chronic pain ?G89.29 - Other chronic pain (ICD-10) <Johnny Painter MD - Last Filed: 08/13/24 20:27> Surgical History: Surgical History History of hernia repair ?Z98.890 - Other specified postprocedural states (ICD-10) ?Z87.19 - Personal history of other diseases of the digestive system (ICD-10) Hx of cholecystectomy ?Z90.49 - Acquired absence of other specified parts of digestive tract (ICD-10) History of resection of terminal ileum ?Z98.890 - Other specified postprocedural states (ICD-10) ?Z90.49 - Acquired absence of other specified parts of digestive tract (ICD-10) History of appendectomy ?Z90.49 - Acquired absence of other specified parts of digestive tract (ICD-10) History of hysterectomy ?Z90.710 - Acquired absence of both cervix and uterus (ICD-10) <Johnny Painter MD - Last Filed: 08/13/24 20:27> Social History: Social History What is your current living situation?: I presently have a place to live Problems where you live: no known problems Problems where you live details: n/a In the past 12 months, utilities in danger of being shut off: no In past 12 months, lack of transportation kept you from medical appts, meetings, work, or getting things needed for daily living: no In the past 12 mos, have been you worried that your food would run out before you had money to buy more?: never true In the past 12 mos, the food you bought just didn't last and you didn't have money to buy more?: never true Highest level of school completed/degree received: high school graduate Smoking Status: Never smoker Do you use any of these nicotine containing products: None How often do you have a drink containing alcohol: never AUDIT-C Alcohol total score: 0 Non-prescribed substance use: denies use Caffeine: Yes How often does anyone, including family, friends and others, physically hurt you: never How often does anyone, including family, friends and others, insult or talk down to you: never How often does anyone, including family, friends and others, threaten you with harm: never How often does anyone, including family, friends and others, scream or curse at you: never service: No <Johnny Painter MD - Last Filed: 08/13/24 20:27> Exam Narrative: Exam Narrative: Objective: Patient's vital signs look within normal limits Patient is alert orient x3 no distress HEENT is unremarkable Neck is supple Abdomen is nondistended mildly tender in epigastrium Extremities normal <Johnny Painter MD - Last Filed: 08/13/24 20:27> Const: Vital Signs, click to edit/add: Vital Signs - 24 hr 08/13/24 20:01 08/13/24 20:51 08/13/24 21:28 Temperature 97.6 F Pulse Rate 93 87 Pulse Rate [Pulse Oximeter] 114 H Respiratory Rate 20 Blood Pressure Blood Pressure [Ri ght Upper Arm] 136/74 Pulse Oximetry 99 98 97 Oxygen Delivery Me thod Room Air 08/13/24 21:30 08/13/24 21:31 08/13/24 21:32 Temperature Pulse Rate 87 91 90 Pulse Rate [Pulse Oximeter] Respiratory Rate Blood Pressure 120/64 120/71 Blood Pressure [Ri ght Upper Arm] Pulse Oximetry 97 92 91 Oxygen Delivery Me thod 08/13/24 21:33 08/13/24 21:45 08/13/24 22:00 Temperature Pulse Rate 90 92 99 Pulse Rate [Pulse Oximeter] Respiratory Rate Blood Pressure Blood Pressure [Ri ght Upper Arm] Pulse Oximetry 91 96 93 Oxygen Delivery Me thod 08/13/24 22:01 08/13/24 22:15 08/13/24 22:54 Temperature Pulse Rate 92 97 95 Pulse Rate [Pulse Oximeter] Respiratory Rate Blood Pressure 114/63 Blood Pressure [Ri ght Upper Arm] Pulse Oximetry 95 97 99 Oxygen Delivery Me thod 08/13/24 23:00 08/13/24 23:04 08/13/24 23:15 Temperature Pulse Rate 92 93 90 Pulse Rate [Pulse Oximeter] Respiratory Rate Blood Pressure Blood Pressure [Ri ght Upper Arm] Pulse Oximetry 99 98 99 Oxygen Delivery Me thod <Johnny Painter MD - Last Filed: 08/13/24 20:27> Vital Signs, click to edit/add: Vital Signs - 24 hr 08/13/24 20:01 08/13/24 20:51 08/13/24 21:28 Temperature 97.6 F Pulse Rate 93 87 Pulse Rate [Pulse Oximeter] 114 H Respiratory Rate 20 Blood Pressure Blood Pressure [Ri ght Upper Arm] 136/74 Pulse Oximetry 99 98 97 Oxygen Delivery Me thod Room Air 08/13/24 21:30 08/13/24 21:31 08/13/24 21:32 Temperature Pulse Rate 87 91 90 Pulse Rate [Pulse Oximeter] Respiratory Rate Blood Pressure 120/64 120/71 Blood Pressure [Ri ght Upper Arm] Pulse Oximetry 97 92 91 Oxygen Delivery Me thod 08/13/24 21:33 08/13/24 21:45 08/13/24 22:00 Temperature Pulse Rate 90 92 99 Pulse Rate [Pulse Oximeter] Respiratory Rate Blood Pressure Blood Pressure [Ri ght Upper Arm] Pulse Oximetry 91 96 93 Oxygen Delivery Me thod 08/13/24 22:01 08/13/24 22:15 08/13/24 22:54 Temperature Pulse Rate 92 97 95 Pulse Rate [Pulse Oximeter] Respiratory Rate Blood Pressure 114/63 Blood Pressure [Ri ght Upper Arm] Pulse Oximetry 95 97 99 Oxygen Delivery Me thod 08/13/24 23:00 08/13/24 23:04 08/13/24 23:15 Temperature Pulse Rate 92 93 90 Pulse Rate [Pulse Oximeter] Respiratory Rate Blood Pressure Blood Pressure [Ri ght Upper Arm] Pulse Oximetry 99 98 99 Oxygen Delivery Me thod <Jun Gallagher MD - Last Filed: 08/14/24 14:00> Course Vital Signs Vital signs: Initial Vital Signs Temperature 97.6 F 08/13/24 20:01 Temperature Source Temporal Artery Scan 08/13/24 20:01 Pulse Rate 114 H 08/13/24 20:01 Respiratory Rate 20 08/13/24 20:01 Blood Pressure 136/74 08/13/24 20:01 Blood Pressure Mean 94 08/13/24 20:01 Pulse Oximetry 99 08/13/24 20:01 Oxygen Delivery Method Room Air 08/13/24 20:01 Vital Signs Temperature 97.6 F 08/13/24 20:01 Pulse Rate 114 H 08/13/24 20:01 Respiratory Rate 20 08/13/24 20:01 Blood Pressure 136/74 08/13/24 20:01 Pulse Oximetry 99 08/13/24 20:01 Oxygen Delivery Method Room Air 08/13/24 20:01 Temperature 98.8 F 08/14/24 11:00 Pulse Rate 81 08/14/24 11:00 Respiratory Rate 18 08/14/24 11:00 Blood Pressure 99/57 L 08/14/24 11:00 Pulse Oximetry 95 08/14/24 11:00 Oxygen Delivery Method Room Air 08/14/24 11:00 <Johnny Painter MD - Last Filed: 08/13/24 20:27> Initial Vital Signs Temperature 97.6 F 08/13/24 20:01 Temperature Source Temporal Artery Scan 08/13/24 20:01 Pulse Rate 114 H 08/13/24 20:01 Respiratory Rate 20 08/13/24 20:01 Blood Pressure 136/74 08/13/24 20:01 Blood Pressure Mean 94 08/13/24 20:01 Pulse Oximetry 99 08/13/24 20:01 Oxygen Delivery Method Room Air 08/13/24 20:01 Vital Signs Temperature 97.6 F 08/13/24 20:01 Pulse Rate 114 H 08/13/24 20:01 Respiratory Rate 20 08/13/24 20:01 Blood Pressure 136/74 08/13/24 20:01 Pulse Oximetry 99 08/13/24 20:01 Oxygen Delivery Method Room Air 08/13/24 20:01 Temperature 98.8 F 08/14/24 11:00 Pulse Rate 81 08/14/24 11:00 Respiratory Rate 18 08/14/24 11:00 Blood Pressure 99/57 L 08/14/24 11:00 Pulse Oximetry 95 08/14/24 11:00 Oxygen Delivery Method Room Air 08/14/24 11:00 <Jun Gallagher MD - Last Filed: 08/14/24 14:00> Medications Administered Medications: Generic Name Dose Route Start Last Admin Trade Name Freq PRN Reason Stop Dose Admin Hydromorphone HCl 0.5 - 1 mg 08/13/24 23:39 08/14/24 12:05 Hydromorphone 0.5 Mg/0.5 Ml Inj IVP 0.5 mg Q1H PRN Administration Sodium Chloride 1,000 mls @ 125 mls/hr 08/13/24 23:39 08/14/24 06:04 0.9 % Sodium Chloride 1000 Ml IV 125 mls/hr .Q8H LEROY Administration Methylprednisolone Sodium Succinate 62.5 mg 08/14/24 07:45 08/14/24 08:12 Methylprednisolone Sod Succ 62.5 Mg/Ml (125) IVP 62.5 mg Q24H LEROY Administration Ondansetron HCl 4 mg 08/13/24 23:39 08/14/24 08:12 Ondansetron 2 Mg/Ml Inj IVP 4 mg Q4H PRN Administration Nausea Prochlorperazine 5 mg 08/13/24 23:39 08/14/24 00:36 Prochlorperazine 5 Mg/Ml Vial IV 5 mg Q6H PRN Administration Sodium Chloride 5 ml 08/13/24 23:39 08/14/24 06:05 Sodium Chloride 0.9 % (Flush) 10 Ml Syringe IVF 5 ml .FLUSH PRN Administration Sodium Chloride 5 ml 08/14/24 09:00 08/14/24 08:58 Sodium Chloride 0.9 % (Flush) 10 Ml Syringe IVF Not Given BID LEROY Spironolactone 50 mg 08/14/24 09:00 08/14/24 08:58 Spironolactone 25 Mg Tablet PO 50 mg DAILY LEROY Administration Discontinued Medications Generic Name Dose Route Start Last Admin Trade Name Freq PRN Reason Stop Dose Admin Gabapentin 300 mg 08/13/24 23:39 08/14/24 00:44 Gabapentin 300 Mg Capsule PO 300 mg DAILY LEROY Administration Hydromorphone HCl 0.5 mg 08/13/24 22:44 08/13/24 22:53 Hydromorphone 0.5 Mg/0.5 Ml Inj IVP 08/13/24 22:45 0.5 mg ONCE ONE Administration Sodium Chloride 1,000 mls @ 6,000 mls/hr 08/13/24 20:30 08/13/24 22:30 0.9 % Sodium Chloride 1000 Ml IV 08/13/24 20:39 Infused .Q10M LEROY Infusion Sodium Chloride 1,000 mls @ 1,000 mls/hr 08/13/24 22:21 08/14/24 00:06 0.9 % Sodium Chloride 1000 Ml IV 08/13/24 23:20 Infused .Q1H ONE Infusion Lorazepam 1 mg 08/13/24 20:21 08/13/24 20:55 Lorazepam 2 Mg/Ml Inj IVP 08/13/24 20:22 1 mg ONCE ONE Administration Methylprednisolone Sodium Succinate 125 mg 08/13/24 23:39 08/14/24 00:37 Methylprednisolone Sod Succ 62.5 Mg/Ml (125) IVP 08/13/24 23:40 125 mg ONCE ONE Administration Ondansetron HCl 4 mg 08/13/24 20:21 08/13/24 20:55 Ondansetron 2 Mg/Ml Inj IVP 08/13/24 20:22 4 mg ONCE ONE Administration <Johnny Painter MD - Last Filed: 08/13/24 20:27> Generic Name Dose Route Start Last Admin Trade Name Freq PRN Reason Stop Dose Admin Hydromorphone HCl 0.5 - 1 mg 08/13/24 23:39 08/14/24 12:05 Hydromorphone 0.5 Mg/0.5 Ml Inj IVP 0.5 mg Q1H PRN Administration Sodium Chloride 1,000 mls @ 125 mls/hr 08/13/24 23:39 08/14/24 06:04 0.9 % Sodium Chloride 1000 Ml IV 125 mls/hr .Q8H LEROY Administration Methylprednisolone Sodium Succinate 62.5 mg 08/14/24 07:45 08/14/24 08:12 Methylprednisolone Sod Succ 62.5 Mg/Ml (125) IVP 62.5 mg Q24H LEROY Administration Ondansetron HCl 4 mg 08/13/24 23:39 08/14/24 08:12 Ondansetron 2 Mg/Ml Inj IVP 4 mg Q4H PRN Administration Nausea Prochlorperazine 5 mg 08/13/24 23:39 08/14/24 00:36 Prochlorperazine 5 Mg/Ml Vial IV 5 mg Q6H PRN Administration Sodium Chloride 5 ml 08/13/24 23:39 08/14/24 06:05 Sodium Chloride 0.9 % (Flush) 10 Ml Syringe IVF 5 ml .FLUSH PRN Administration Sodium Chloride 5 ml 08/14/24 09:00 08/14/24 08:58 Sodium Chloride 0.9 % (Flush) 10 Ml Syringe IVF Not Given BID LEROY Spironolactone 50 mg 08/14/24 09:00 08/14/24 08:58 Spironolactone 25 Mg Tablet PO 50 mg DAILY LEROY Administration Discontinued Medications Generic Name Dose Route Start Last Admin Trade Name Freq PRN Reason Stop Dose Admin Gabapentin 300 mg 08/13/24 23:39 08/14/24 00:44 Gabapentin 300 Mg Capsule PO 300 mg DAILY LEROY Administration Hydromorphone HCl 0.5 mg 08/13/24 22:44 08/13/24 22:53 Hydromorphone 0.5 Mg/0.5 Ml Inj IVP 08/13/24 22:45 0.5 mg ONCE ONE Administration Sodium Chloride 1,000 mls @ 6,000 mls/hr 08/13/24 20:30 08/13/24 22:30 0.9 % Sodium Chloride 1000 Ml IV 08/13/24 20:39 Infused .Q10M LEROY Infusion Sodium Chloride 1,000 mls @ 1,000 mls/hr 08/13/24 22:21 08/14/24 00:06 0.9 % Sodium Chloride 1000 Ml IV 08/13/24 23:20 Infused .Q1H ONE Infusion Lorazepam 1 mg 08/13/24 20:21 08/13/24 20:55 Lorazepam 2 Mg/Ml Inj IVP 08/13/24 20:22 1 mg ONCE ONE Administration Methylprednisolone Sodium Succinate 125 mg 08/13/24 23:39 08/14/24 00:37 Methylprednisolone Sod Succ 62.5 Mg/Ml (125) IVP 08/13/24 23:40 125 mg ONCE ONE Administration Ondansetron HCl 4 mg 08/13/24 20:21 08/13/24 20:55 Ondansetron 2 Mg/Ml Inj IVP 08/13/24 20:22 4 mg ONCE ONE Administration <Jun Gallagher MD - Last Filed: 08/14/24 14:00> Medical Decision Making MDM Narrative Medical decision making narrative: [age] female with history of Crohn's disease with nausea vomiting diarrhea possibly not Crohn's but I think could be stress related but I think we need to check this out make sure no flare. Will check a CT scan, labs, IV fluid, disposition pending findings. <Johnny Painter MD - Last Filed: 08/13/24 20:27> [age] white female with history of Crohn's disease with nausea vomiting diarrhea possibly not Crohn's but I think could be stress related but I think we need to check this out make sure no flare. Will check a CT scan, labs, IV fluid, disposition pending findings. Aileen -- inherited this patient at change of shift pending final labs and CT imaging. I have ordered for another L normal saline. Labs are reassuring. CT scan by my independent review shows loss of fluid-filled small bowel distally. SBO? No clear inflammatory changes though. Radiology over-read INDICATION: Abdominal pain. History of Crohn`s. TECHNIQUE: CT abdomen and pelvis acquired with 89 cc Isovue 370 IV contrast. COMPARISON: CT abdomen pelvis 10/16/2013, abdominal radiographs 11/30/2020. FINDINGS: Lower chest: Unremarkable. Liver: Hepatic steatosis. Gallbladder and bile ducts: Cholecystectomy. No suspicious biliary dilatation. Pancreas: Unremarkable. Spleen: Unremarkable. Adrenal glands: Unremarkable. Kidneys: Symmetric renal enhancement. No hydronephrosis or hydroureter. No urinary calculi. GI tract: Multiple loops of mildly prominent fluid-filled small bowel with transition to collapsed small bowel loop within the right lower quadrant (series 2, image 79). Vasculature: Grossly patent vasculature. No abdominal aortic aneurysm. Lymph nodes: No suspicious lymphadenopathy. Peritoneum/Abdominal Wall: No ascites or pneumoperitoneum. No acute abdominal wall abnormality. Pelvis: Normal bladder. No suspicious adnexal mass. Bones: No acute abnormality. IMPRESSION: 1. Probable small bowel obstruction with transition point noted within the right lower quadrant. Please note that all CT scans at this facility use dose modulation, iterative reconstruction, and/or weight-based dosing when appropriate to reduce radiation dose to as low as reasonably achievable. Dictated by Phani Archibald MD @ 08/13/2024 10:07:38 PM discussed with general surgery though no intervention needed at this point. Given some Dilaudid for pain control. Discussed with hospitalist for admission. <Jun Gallagher MD - Last Filed: 08/14/24 14:00> Medical Records Medical records reviewed: Yes I reviewed the patient's medical records <Jun Gallagher MD - Last Filed: 08/14/24 14:00> Lab Data Lab results reviewed: Yes I reviewed the patient's lab results <Jun Gallagher MD - Last Filed: 08/14/24 14:00> Labs: Lab Results 08/13/24 Range/Units 20:35 WBC 10.15 (4.50-11.00) K/uL RBC 4.78 (4.00-5.20) m/uL Hgb 13.9 (12.0-16.0) gm/dL Hct 41.2 (33.0-51.0) % MCV 86 (80-100) fL MCH 29 (26-34) pg MCHC 34 (32-36) gm/dL RDW Coeff of Nora 12.8 (11.5-15.5) % Plt Count 263 (140-440) K/uL Neut % (Auto) 68.3 (42.0-72.0) % Lymph % (Auto) 22.4 (20-44) % [place] % (Auto) 7.9 (0.0-11.0) % Eos % (Auto) 1.0 (0.0-7.0) % Baso % (Auto) 0.3 (0.0-3.0) % Neut # (Auto) 6.94 (1.7-7.0) K/uL Lymph # (Auto) 2.27 (0.90-2.90) K/uL [place] # (Auto) 0.80 (0.00-0.90) K/UL Eos # (Auto) 0.10 (0.00-0.50) K/uL Baso # (Auto) 0.03 (0.00-0.30) K/uL Abs Immat Gran (auto) 0.01 (0.00-0.30) K/uL Imm/Tot Granulo (auto) 0.1 % Sodium 137 (135-149) mmol/L Potassium 3.6 (3.6-5.1) mmol/L Chloride 104 (96-114) mmol/L Carbon Dioxide 25 (20-32) mmol/L Anion Gap 8 (7-15) mEq/L BUN 14 (7-30) mg/dL Creatinine 0.9 (0.5-1.5) mg/dL Estimated Creat Clear 57.74 Estimated GFR 75 ml/min Glucose 111 (60-115) mg/dL Calcium 9.2 (8.4-10.6) mg/dL Total Bilirubin 0.6 (0.1-1.5) mg/dL Direct Bilirubin 0.4 (0.0-0.5) mg/dL AST 45 H (12-35) U/L ALT 44 H (4-35) U/L Alkaline Phosphatase 60 (40-150) U/L C-Reactive Protein 0.7 (0.5-1.0) mg/dL Total Protein 8.1 (6.0-8.3) g/dL Albumin 4.4 (3.3-5.0) g/dL <Johnny Painter MD - Last Filed: 08/13/24 20:27> Lab Results 08/13/24 Range/Units 20:35 WBC 10.15 (4.50-11.00) K/uL RBC 4.78 (4.00-5.20) m/uL Hgb 13.9 (12.0-16.0) gm/dL Hct 41.2 (33.0-51.0) % MCV 86 (80-100) fL MCH 29 (26-34) pg MCHC 34 (32-36) gm/dL RDW Coeff of Nora 12.8 (11.5-15.5) % Plt Count 263 (140-440) K/uL Neut % (Auto) 68.3 (42.0-72.0) % Lymph % (Auto) 22.4 (20-44) % [place] % (Auto) 7.9 (0.0-11.0) % Eos % (Auto) 1.0 (0.0-7.0) % Baso % (Auto) 0.3 (0.0-3.0) % Neut # (Auto) 6.94 (1.7-7.0) K/uL Lymph # (Auto) 2.27 (0.90-2.90) K/uL [place] # (Auto) 0.80 (0.00-0.90) K/UL Eos # (Auto) 0.10 (0.00-0.50) K/uL Baso # (Auto) 0.03 (0.00-0.30) K/uL Abs Immat Gran (auto) 0.01 (0.00-0.30) K/uL Imm/Tot Granulo (auto) 0.1 % Sodium 137 (135-149) mmol/L Potassium 3.6 (3.6-5.1) mmol/L Chloride 104 (96-114) mmol/L Carbon Dioxide 25 (20-32) mmol/L Anion Gap 8 (7-15) mEq/L BUN 14 (7-30) mg/dL Creatinine 0.9 (0.5-1.5) mg/dL Estimated Creat Clear 57.74 Estimated GFR 75 ml/min Glucose 111 (60-115) mg/dL Calcium 9.2 (8.4-10.6) mg/dL Total Bilirubin 0.6 (0.1-1.5) mg/dL Direct Bilirubin 0.4 (0.0-0.5) mg/dL AST 45 H (12-35) U/L ALT 44 H (4-35) U/L Alkaline Phosphatase 60 (40-150) U/L C-Reactive Protein 0.7 (0.5-1.0) mg/dL Total Protein 8.1 (6.0-8.3) g/dL Albumin 4.4 (3.3-5.0) g/dL <Jun Gallagher MD - Last Filed: 08/14/24 14:00> Discharge Plan Discharge Clinical Impression: Small bowel obstruction, Crohn's disease, Abdominal pain, vomiting, and diarrhea <Johnny Painter MD - Last Filed: 08/13/24 20:27> Patient Disposition: Admitted As Observation <Johnny Painter MD - Last Filed: 08/13/24 20:27> Condition: Stable <Johnny Painter MD - Last Filed: 08/13/24 20:27>
[2024-08-13 20:42] LABS: Basophils Absolute Auto 0.03 K/uL (0.00-0.30); Basophils Percent Auto 0.3 % (0.0-3.0); Hematocrit 41.2 % (33.0-51.0); Hemoglobin* 13.9 gm/dL (12.0-16.0); Immature Granulocytes Abs Auto 0.01 K/uL (0.00-0.30); Immature Granulocytes Pct Auto 0.1 %; Lymphocytes Absolute Auto 2.27 K/uL (0.90-2.90); Lymphocytes Percent Auto 22.4 % (20-44); Mean Corpuscular HGB Conc 34 gm/dL (32-36); Mean Corpuscular Hemoglobin 29 pg (26-34); Mean Corpuscular Volume 86 fL (80-100); Monocytes Percent Auto 7.9 % (0.0-11.0); Neutrophils Absolute Auto 6.94 K/uL (1.7-7.0); Neutrophils Percent Auto 68.3 % (42.0-72.0); Platelet Count* 263 K/uL (140-440); RDW Coefficient of Variation % 12.8 % (11.5-15.5); Red Blood Count 4.78 m/uL (4.00-5.20); White Blood Count* 10.15 K/uL (4.50-11.00)
[2024-08-13 20:48] LABS: Slide Review Reflex No
--- OUTSIDE RECORDS SUMMARY | 2024-08-13 20:50 | XMS_ITS | CCD ---
Author Name Interface, [id number] lity Address [address] [place] [id number] [facility] Address [facility] [address] [place] [address] Care Team Providers Care Principal Systems Architect Name Role Phone Bambi Serrano Unavailable Unavailab le Reason for Visit Social History
--- OUTSIDE RECORDS SUMMARY | 2024-08-13 20:50 | XMS_ITS | CCD ---
Author Name Interface, [id number] lity Address [address] [place] [id number] [facility] Address [facility] [address] [place] [address] Care Team Providers Care E Commerce Strategist Name Role Phone Bambi Serrano Unavailable Unavailab le Reason for Visit Social History
[2024-08-13] MEDS: 0.9 % SODIUM CHLORIDE 1000 ml 1,000 ML 6000 ML IV (20:55)
[2024-08-13] MEDS: LORazepam 2 MG/ML inj 1 MG IVP (20:55)
[2024-08-13] MEDS: ONDANSETRON 2 MG/ML inj 4 MG IVP (20:55)
[2024-08-13 21:01] LABS: Albumin* 4.4 g/dL (3.3-5.0); Chloride* 104 mmol/L (96-114); Potassium* 3.6 mmol/L (3.6-5.1); Sodium* 137 mmol/L (135-149)
[2024-08-13 21:04] LABS: Alanine Aminotransferase* 44 U/L (4-35); Alkaline Phosphatase* 60 U/L (40-150); Anion Gap 8 mEq/L (7-15); Aspartate Amino Transferase* 45 U/L (12-35); Bilirubin Direct* 0.4 mg/dL (0.0-0.5); Bilirubin Total* 0.6 mg/dL (0.1-1.5); Blood Urea Nitrogen* 14 mg/dL (7-30); Carbon Dioxide* 25 mmol/L (20-32); Creatinine* 0.9 mg/dL (0.5-1.5); Est. Creatinine Clearance* 57.74; Estimated Glomerular Filt Rate 75 ml/min; Total Protein* 8.1 g/dL (6.0-8.3)
[2024-08-13 21:05] LABS: Calcium* 9.2 mg/dL (8.4-10.6); Glucose* 111 mg/dL (60-115)
[2024-08-13 21:07] LABS: C Reactive Protein* 0.7 mg/dL (0.5-1.0)
[2024-08-13] MEDS: 0.9 % SODIUM CHLORIDE 1000 ml 1,000 ML IV (22:46)
[2024-08-13] MEDS: HYDROmorphone 0.5 mg/0.5 ml inj IVP (22:53)
--- NOTE | 2024-08-13 23:31 | PM.IMHP1 ---
Assessment and Plan Assessment and plan (1) Small bowel obstruction: Problem comment: Nausea, vomiting, diarrhea onset 08/12/2024 H/o SBO s/p ileocolic resection and appendectomy 2006, NH+C CT shows Probable small bowel obstruction with transition point noted within the right lower quadrant Afebrile, no leukocytosis, CRP 0.7, electrolytes unremarkable, AST 45/ALT 44 otherwise LFTs unremarkable NPO IVF Pain and nausea management Consider NGT if worsening or no improvement ED provider discussed with Dr. Shi, consult in a.m. Status: Acute (2) Abdominal pain, vomiting, and diarrhea: Problem comment: Acute, in setting of suspected SBO, Crohn's flare Status: Acute (3) Crohn's disease: Problem comment: Managed with Remicade Several years since last flare; admits to increased stressors recently Methylprednisolone 125 mg IV x1 on admission. Consider further prednisone management if concern for inflammatory rather than fibrotic obstruction Status: Acute Total Time Spent Total Time Spent: Today I spent 75 minutes seeing the patient, reviewing Expanse and EPIC notes/diagnostics, discussing the care plan with our care time that includes social work, PT/OT, pharmacy, RT, mcc and documenting my impressions and plan in the medical record. Hospitalist- H&P: HPI History of Present Illness Date Seen: 08/13/24 Chief complaint: vomiting Narrative: Adalberto Keene is a 54 year old female past medical history significant for Crohn's disease managed with Remicade, chronic pain, hair loss, status post appendectomy, cholecystectomy, ileocolic resection, hysterectomy, tubal ligation is admitted to the medical floor from the ED with nausea, vomiting, diarrhea and diagnostic findings of suspected small-bowel obstruction. Patient reports onset of nausea with vomiting yesterday, 08/12/2024, followed by diarrhea. Reports ongoing watery loose stools, last stool while in the ED. Denies blood in her stools. Has not vomited since arrival to the ED, reporting Zofran has been helpful. Has had abdominal pain across the lower abdomen, now localizing in the right lower quadrant. Has been distended. Denies fevers. Denies headaches or dizziness. Denies chest pain or shortness of breath. Reports increased stressors recently, believing this is likely the cause of her current state of health. Otherwise, denies known exposures. No one around her has been ill. No recent travel. Last Crohn's flare many years ago. In ED, CT shows concern for SBO RLQ. No leukocytosis. Electrolytes and LFTs rather unremarkable. Nausea and vomiting improved. No NGT. Nonsmoker. Minimal alcohol use. Primary care is Dr. Buck. Review of Systems Narrative: REVIEW OF SYSTEMS: Complete review of systems performed and negative unless otherwise stated in HPI or below. PFSH PFSH Medical History Hair loss ?L65.9 - Nonscarring hair loss, unspecified (ICD-10) Chronic pain ?G89.29 - Other chronic pain (ICD-10) Surgical History History of hernia repair ?Z98.890 - Other specified postprocedural states (ICD-10) ?Z87.19 - Personal history of other diseases of the digestive system (ICD-10) Hx of cholecystectomy ?Z90.49 - Acquired absence of other specified parts of digestive tract (ICD-10) History of resection of terminal ileum ?Z98.890 - Other specified postprocedural states (ICD-10) ?Z90.49 - Acquired absence of other specified parts of digestive tract (ICD-10) History of appendectomy ?Z90.49 - Acquired absence of other specified parts of digestive tract (ICD-10) History of hysterectomy ?Z90.710 - Acquired absence of both cervix and uterus (ICD-10) Social History Smoking Status: Never smoker Meds Home Medications and Allergies Home Medications ?Medication ?Instructions ?Recorded ?Confirmed ?Type estradiol 0.5 mg tablet 0.5 mg PO DIRECTED 09/22/21 08/13/24 History gabapentin 300 mg capsule 300 mg PO DAILY 09/22/21 08/13/24 History ketoconazole 2 % shampoo 1 applic topical DIRECTED 09/22/21 08/13/24 History spironolactone 50 mg tablet 50 mg PO DAILY 09/22/21 08/13/24 History infliximab 100 mg intravenous mg IV 08/13/24 History solution (Remicade) Allergies Allergy/AdvReac Type Severity Reaction Status Date / Time Cephalosporins Allergy Severe hives Verified 08/13/24 21:23 morphine Allergy Severe hives Verified 08/13/24 21:23 Quinolones Allergy Severe hives Verified 08/13/24 21:23 latex Allergy Severe blisters Uncoded 08/13/24 21:23 sulfa drugs Allergy Severe hives Uncoded 08/13/24 21:23 meperdine Allergy Intermediate reddened Uncoded 08/13/24 21:23 veins adhesives Allergy Mild Rash Uncoded 08/13/24 21:23 Exam Narrative: Exam Narrative: PHYSICAL EXAM General: Pleasant, conversant, appears mildly uncomfortable otherwise NAD HEENT: Normocephalic, atraumatic, sclera white, EOMI, oral mucosa moist Cardiovascular: RRR, S1S2. No pitting edema Pulmonary: CTA bilaterally without rhonchi, rales, expiratory wheezes. No dyspnea on room air Abdominal: Mildly distended, diffuse tenderness lower abdomen, greater right lower quadrant, no guarding or peritoneal signs Neurological: Alert, answering questions appropriately, cranial nerves intact, no focal findings Extremities: No gross joint deformity or swelling. AROMI. Neurovascularly intact Skin: Warm, dry. Const: Vital Signs, click to edit/add: Vital Signs - 24 hr 08/13/24 20:01 08/13/24 20:51 08/13/24 21:28 Temperature 97.6 F Pulse Rate 93 87 Pulse Rate [Pulse Oximeter] 114 H Respiratory Rate 20 Blood Pressure Blood Pressure [Ri ght Upper Arm] 136/74 Pulse Oximetry 99 98 97 Oxygen Delivery Me thod Room Air 08/13/24 21:30 08/13/24 21:31 08/13/24 21:32 Temperature Pulse Rate 87 91 90 Pulse Rate [Pulse Oximeter] Respiratory Rate Blood Pressure 120/64 120/71 Blood Pressure [Ri ght Upper Arm] Pulse Oximetry 97 92 91 Oxygen Delivery Me thod 08/13/24 21:33 08/13/24 21:45 08/13/24 22:00 Temperature Pulse Rate 90 92 99 Pulse Rate [Pulse Oximeter] Respiratory Rate Blood Pressure Blood Pressure [Ri ght Upper Arm] Pulse Oximetry 91 96 93 Oxygen Delivery Me thod 08/13/24 22:01 08/13/24 22:15 08/13/24 22:54 Temperature Pulse Rate 92 97 95 Pulse Rate [Pulse Oximeter] Respiratory Rate Blood Pressure 114/63 Blood Pressure [Ri ght Upper Arm] Pulse Oximetry 95 97 99 Oxygen Delivery Tx thod 08/13/24 23:00 08/13/24 23:04 08/13/24 23:15 Temperature Pulse Rate 92 93 90 Pulse Rate [Pulse Oximeter] Respiratory Rate Blood Pressure Blood Pressure [Ri ght Upper Arm] Pulse Oximetry 99 98 99 Oxygen Delivery [facility] Hospitalist - H&P: Result Labs Labs: Short CBC 08/13/24 Range/Units 20:35 WBC 10.15 (4.50-11.00) K/uL Hgb 13.9 (12.0-16.0) gm/dL Hct 41.2 (33.0-51.0) % Plt Count 263 (140-440) K/uL BMP 08/13/24 20:35 Sodium 137 Potassium 3.6 Chloride 104 Carbon Dioxide 25 BUN 14 Creatinine 0.9 Glucose 111 Calcium 9.2 Liver Function 08/13/24 Range/Units 20:35 Total Bilirubin 0.6 (0.1-1.5) mg/dL Direct Bilirubin 0.4 (0.0-0.5) mg/dL AST 45 H (12-35) U/L ALT 44 H (4-35) U/L Alkaline Phosphatase 60 (40-150) U/L Albumin 4.4 (3.3-5.0) g/dL Imaging CT abdomen pelvis: Attestation: I have reviewed the pertinent imaging results. Radiologist's impression: Lower chest: Unremarkable. Liver: Hepatic steatosis. Gallbladder and bile ducts: Cholecystectomy. No suspicious biliary dilatation. Pancreas: Unremarkable. Spleen: Unremarkable. Adrenal glands: Unremarkable. Kidneys: Symmetric renal enhancement. No hydronephrosis or hydroureter. No urinary calculi. GI tract: Multiple loops of mildly prominent fluid-filled small bowel with transition to collapsed small bowel loop within the right lower quadrant (series 2, image 79). Vasculature: Grossly patent vasculature. No abdominal aortic aneurysm. Lymph nodes: No suspicious lymphadenopathy. Peritoneum/Abdominal Wall: No ascites or pneumoperitoneum. No acute abdominal wall abnormality. Pelvis: Normal bladder. No suspicious adnexal mass. Bones: No acute abnormality. IMPRESSION: 1. Probable small bowel obstruction with transition point noted within the right lower quadrant.
[2024-08-14] MEDS: 0.9 % SODIUM CHLORIDE 1000 ml 1,000 ML 125 ML IV ×4 (00:36→21:03)
[2024-08-14] MEDS: PROCHLORPERAZINE 5 MG/ML VIAL IV ×2 (00:36→15:30)
[2024-08-14] MEDS: HYDROmorphone 0.5 mg/0.5 ml inj IVP ×4 (00:37→12:05)
[2024-08-14] MEDS: METHYLPREDNISOLONE SOD SUCC 62.5 MG/ML (125) 125 MG IVP (00:37)
[2024-08-14] MEDS: SODIUM CHLORIDE 0.9 % (FLUSH) 10 ML SYRINGE 5 ML IVF ×2 (00:38→06:05)
[2024-08-14] MEDS: GABAPENTIN 300 MG CAPSULE PO ×2 (00:44→21:01)
[2024-08-14 03:30] VITALS: BP 101/57; PULSE 81; RESP 16; TEMP 37.2; O2SAT 92
--- NOTE | 2024-08-14 06:08 | PC.NURSE ---
Patient admitted to the unit at 2335. Compazine administered for nausea x1, improved. Diarrhea x1 during shift. BS active. Walk halls x1. Dilaudid administered for pain relief.
[2024-08-14 06:33] LABS: Hematocrit 39.7 % (33.0-51.0); Hemoglobin* 13.3 gm/dL (12.0-16.0); Mean Corpuscular HGB Conc 34 gm/dL (32-36); Mean Corpuscular Hemoglobin 30 pg (26-34); Mean Corpuscular Volume 88 fL (80-100); Platelet Count* 247 K/uL (140-440); Red Blood Count 4.51 m/uL (4.00-5.20); White Blood Count* 6.96 K/uL (4.50-11.00)
[2024-08-14 06:35] LABS: Slide Review Reflex No
[2024-08-14 06:45] LABS: Albumin* 3.8 g/dL (3.3-5.0); Chloride* 108 mmol/L (96-114); Potassium* 4.5 mmol/L (3.6-5.1); Sodium* 139 mmol/L (135-149)
[2024-08-14 06:47] LABS: Blood Urea Nitrogen* 11 mg/dL (7-30); Creatinine* 0.7 mg/dL (0.5-1.5); Est. Creatinine Clearance* 74.23; Estimated Glomerular Filt Rate 101 ml/min
[2024-08-14 06:48] LABS: Alanine Aminotransferase* 35 U/L (4-35); Alkaline Phosphatase* 46 U/L (40-150); Anion Gap 7 mEq/L (7-15); Aspartate Amino Transferase* 37 U/L (12-35); Bilirubin Direct* 0.3 mg/dL (0.0-0.5); Bilirubin Total* 0.5 mg/dL (0.1-1.5); Carbon Dioxide* 24 mmol/L (20-32); Total Protein* 7.1 g/dL (6.0-8.3)
[2024-08-14 06:49] LABS: Calcium* 8.3 mg/dL (8.4-10.6); Glucose* 150 mg/dL (60-115)
[2024-08-14 06:51] LABS: C Reactive Protein* 1.1 mg/dL (0.5-1.0)
[2024-08-14 07:00] VITALS: BP 111/65; PULSE 86; RESP 18; TEMP 36.9; O2SAT 97
[2024-08-14] MEDS: ONDANSETRON 2 MG/ML inj 4 MG IVP (08:12)
[2024-08-14] MEDS: METHYLPREDNISOLONE SOD SUCC 62.5 MG/ML (125) IVP (08:12)
[2024-08-14] MEDS: SPIRONOLACTONE 25 MG TABLET 50 MG PO (08:58)
[2024-08-14 11:00] VITALS: BP 99/57; PULSE 81; RESP 18; TEMP 37.1; O2SAT 95
--- NOTE | 2024-08-14 11:32 | P.IMPN_ITS ---
Assessment and Plan Assessment and plan (1) Small bowel obstruction: Problem comment: Nausea, vomiting, diarrhea onset 08/12/2024 H/o SBO s/p ileocolic resection and appendectomy 2005, NH+C CT shows Probable small bowel obstruction with transition point noted within the right lower quadrant Afebrile, no leukocytosis, CRP 0.7, electrolytes unremarkable, AST 45/ALT 44 otherwise LFTs unremarkable NPO IVF Pain and nausea management Consider NGT if worsening or no improvement ED provider discussed with Dr. Shi, consult in a.m. Status: Acute (2) Abdominal pain, vomiting, and diarrhea: Problem comment: Acute, in setting of suspected SBO, Crohn's flare . Solu-Medrol 60 mg IV daily with transition to prednisone 40 mg daily when tolerating oral medication. Status: Acute (3) Crohn's disease: Problem comment: Managed with Remicade . Last dose 2 weeks ago Several years since last flare; admits to increased stressors recently Status: Acute Plan continue in hospital for IV fluids, IV steroids, surgical consultation, symptom management. Plan conservative management pending clinical course. Total Time Spent Total Time Spent: Total time spent today is 60 minutes in review of outside records, coordination of care, discussion with patient and other providers ongoing management of small bowel obstruction in the context of Crohn's disease and prior surgery Subjective Date Seen: 08/14/24 Interval history: Adalberto is a 54-year-old female with Crohn's disease admitted to the hospital with a 2 day history of abdominal pain vomiting and diarrhea. She reports she was doing well until 2 days ago when she started having vomiting and diarrhea. Yesterday this continued and she developed significant abdominal pain. She has been feeling some abdominal bloating. she has not had any blood in her stool. No fever. She has Crohn's disease managed over the last couple decades on infliximab. In 2005 she had a small bowel obstruction and underwent surgery with ileocolic resection and appendectomy. She has had an occasional episode of partial obstruction in the past but has not been hospitalized since 2010 for this. She reports that she has had a lot of personal and family stress recently and reports that stress often causes a flare of her Crohn's. Since admission she reports she has continued to have a little bit of diarrhea and she is continuing to pass gas. Exam Narrative: Exam Narrative: She is alert and appears in no distress. Speech is normal. Eyes normal. Oropharynx normal. Neck is supple without mass or adenopathy. Respirations are clear to auscultation. Breathing is unlabored. Cardiovascular: S1, S2, regular rate and rhythm. No murmur gallop or rub. Abdomen: Bowel sounds are present. Abdomen is soft with mild right lower quadrant tenderness. No mass. No peritonitis. Extremities without edema. Good peripheral perfusion. Const: Vital Signs, click to edit/add: Vital Signs - 24 hr 08/13/24 20:01 08/13/24 20:51 08/13/24 21:28 Temperature 97.6 F Pulse Rate 93 87 Pulse Rate [Pulse Oximeter] 114 H Respiratory Rate 20 Blood Pressure Blood Pressure [Ri ght Arm] Blood Pressure [Ri ght Upper Arm] 136/74 Pulse Oximetry 99 98 97 Oxygen Delivery Me thod Room Air 08/13/24 21:30 08/13/24 21:31 08/13/24 21:32 Temperature Pulse Rate 87 91 90 Pulse Rate [Pulse Oximeter] Respiratory Rate Blood Pressure 120/64 120/71 Blood Pressure [Ri ght Arm] Blood Pressure [Ri ght Upper Arm] Pulse Oximetry 97 92 91 Oxygen Delivery Me thod 08/13/24 21:33 08/13/24 21:45 08/13/24 22:00 Temperature Pulse Rate 90 92 99 Pulse Rate [Pulse Oximeter] Respiratory Rate Blood Pressure Blood Pressure [Ri ght Arm] Blood Pressure [Ri ght Upper Arm] Pulse Oximetry 91 96 93 Oxygen Delivery Me thod 08/13/24 22:01 08/13/24 22:15 08/13/24 22:54 Temperature Pulse Rate 92 97 95 Pulse Rate [Pulse Oximeter] Respiratory Rate Blood Pressure 114/63 Blood Pressure [Ri ght Arm] Blood Pressure [Ri ght Upper Arm] Pulse Oximetry 95 97 99 Oxygen Delivery Me thod 08/13/24 23:00 08/13/24 23:04 08/13/24 23:15 Temperature Pulse Rate 92 93 90 Pulse Rate [Pulse Oximeter] Respiratory Rate Blood Pressure Blood Pressure [Ri ght Arm] Blood Pressure [Ri ght Upper Arm] Pulse Oximetry 99 98 99 Oxygen Delivery Me thod 08/13/24 23:57 08/14/24 03:30 08/14/24 07:00 Temperature 98.8 F 98.9 F 98.4 F Pulse Rate Pulse Rate [Pulse Oximeter] 86 81 86 Respiratory Rate 22 16 18 Blood Pressure Blood Pressure [Ri ght Arm] 140/90 H 101/57 L 111/65 Blood Pressure [Ri ght Upper Arm] Pulse Oximetry 100 92 97 Oxygen Delivery Me thod Room Air Room Air Room Air 08/14/24 07:00 08/14/24 11:00 Temperature 98.8 F Pulse Rate Pulse Rate [Pulse Oximeter] 86 81 Respiratory Rate 18 18 Blood Pressure Blood Pressure [Ri ght Arm] 99/57 L Blood Pressure [Ri ght Upper Arm] Pulse Oximetry 95 Oxygen Delivery Me thod Room Air Labs Labs: Laboratory Results - last 24 hr 08/13/24 08/14/24 20:35 05:58 WBC 10.15 6.96 RBC 4.78 4.51 Hgb 13.9 13.3 Hct 41.2 39.7 MCV 86 88 MCH 29 30 MCHC 34 34 RDW Coeff of Nora 12.8 Plt Count 263 247 Neut % (Auto) 68.3 Lymph % (Auto) 22.4 [place] % (Auto) 7.9 Eos % (Auto) 1.0 Baso % (Auto) 0.3 Neut # (Auto) 6.94 Lymph # (Auto) 2.27 [place] # (Auto) 0.80 Eos # (Auto) 0.10 Baso # (Auto) 0.03 Abs Immat Gran (auto) 0.01 Imm/Tot Granulo (auto) 0.1 Sodium 137 139 Potassium 3.6 4.5 Chloride 104 108 Carbon Dioxide 25 24 Anion Gap 8 7 BUN 14 11 Creatinine 0.9 0.7 Estimated Creat Clear 57.74 74.23 Estimated GFR 75 101 Glucose 111 150 H Calcium 9.2 8.3 L Total Bilirubin 0.6 0.5 Direct Bilirubin 0.4 0.3 AST 45 H 37 H ALT 44 H 35 Alkaline Phosphatase 60 46 C-Reactive Protein 0.7 1.1 H Total Protein 8.1 7.1 Albumin 4.4 3.8
[2024-08-14 15:00] VITALS: BP 116/69; PULSE 89; RESP 18; TEMP 37.1; O2SAT 93
[2024-08-14 19:00] VITALS: BP 116/58; PULSE 88; RESP 17; TEMP 36.6; O2SAT 94
--- NOTE | 2024-08-14 19:25 | PC.NURSE ---
End of Shift: Patient pleasant and cooperative, A&O. VSS, afebrile. SpO2 maintained above 90% on RA. Patient reports pain in her abdomen this shift, managed with PRN medication, see MAR. Nausea managed with PRN medication. Tolerating clear liquids this afternoon. Independent in room.
[2024-08-14 23:00] VITALS: BP 100/61; PULSE 85; RESP 18; TEMP 36.6; O2SAT 94
[2024-08-15 03:00] VITALS: BP 98/53; PULSE 79; RESP 18; TEMP 36.8; O2SAT 96
[2024-08-15 06:27] LABS: Hematocrit 35.8 % (33.0-51.0); Hemoglobin* 11.9 gm/dL (12.0-16.0); Mean Corpuscular HGB Conc 33 gm/dL (32-36); Mean Corpuscular Hemoglobin 29 pg (26-34); Mean Corpuscular Volume 88 fL (80-100); Platelet Count* 249 K/uL (140-440); Red Blood Count 4.05 m/uL (4.00-5.20); White Blood Count* 12.29 K/uL (4.50-11.00)
[2024-08-15 06:34] LABS: Slide Review Reflex No
[2024-08-15 06:35] LABS: Chloride* 111 mmol/L (96-114); Potassium* 3.8 mmol/L (3.6-5.1); Sodium* 140 mmol/L (135-149)
[2024-08-15 06:39] LABS: Anion Gap 5 mEq/L (7-15); Blood Urea Nitrogen* 13 mg/dL (7-30); Calcium* 8.1 mg/dL (8.4-10.6); Carbon Dioxide* 24 mmol/L (20-32); Creatinine* 0.7 mg/dL (0.5-1.5); Est. Creatinine Clearance* 74.23; Estimated Glomerular Filt Rate 101 ml/min; Glucose* 94 mg/dL (60-115)
[2024-08-15 06:42] LABS: C Reactive Protein* 0.8 mg/dL (0.5-1.0)
[2024-08-15 07:00] VITALS: BP 121/73; PULSE 90; RESP 18; TEMP 36.7; O2SAT 97
--- NOTE | 2024-08-15 07:40 | PC.NURSE ---
Shift note ([id number]): Patient pleasant, alert and oriented. Independent in room. Denied pain. BS active. Abdomen distended. One small loose BM this during the night. Pt reported being puffy in her hands and face. updated this am.?Saline locked this morning per new orders.?
[2024-08-15] MEDS: METHYLPREDNISOLONE SOD SUCC 62.5 MG/ML (125) IVP (08:08)
--- NOTE | 2024-08-15 08:27 | P.DS_ITS ---
DS: Providers Provider Date Seen: 08/15/24 Date of admission: 08/13/24 23:28 Primary care physician: Alysia Buck MD Admitting Clinician: Veronica Slater MD Attending Physician on discharge: Eddie Dawson MD Date of Discharge: 08/15/24 DS: Diagnosis Discharge Diagnosis (1) Small bowel obstruction: Status: Acute Problem details: Nausea, vomiting, diarrhea onset 08/12/2024 H/o SBO s/p ileocolic resection and appendectomy 2006, NH+C CT shows Probable small bowel obstruction with transition point noted within the right lower quadrant Afebrile, no leukocytosis, CRP 0.7, electrolytes unremarkable, AST 45/ALT 44 otherwise LFTs unremarkable NPO IVF Pain and nausea management Consider NGT if worsening or no improvement ED provider discussed with Dr. Shi, consult in a.m. (2) Crohn's disease: Status: Acute Problem details: Managed with Remicade . Last dose 2 weeks ago Several years since last flare; admits to increased stressors recently (3) Abdominal pain, vomiting, and diarrhea: Status: Acute Problem details: Acute, in setting of suspected SBO, Crohn's flare . Solu-Medrol 60 mg IV daily with transition to prednisone 40 mg daily when tolerating oral medication. DS: Summary Hospital Course Hospital Course: Adalberto is a 54-year-old female with Crohn's disease admitted to the hospital with a 2 day history of abdominal pain vomiting and diarrhea. She reports she was doing well until 2 days ago when she started having vomiting and diarrhea. Yesterday this continued and she developed significant abdominal pain. She has been feeling some abdominal bloating. she has not had any blood in her stool. No fever. She has Crohn's disease managed over the last couple decades on infliximab. In 2005 she had a small bowel obstruction and underwent surgery with ileocolic resection and appendectomy. She has had an occasional episode of partial obstruction in the past but has not been hospitalized since 2010 for this. She reports that she has had a lot of personal and family stress recently and reports that stress often causes a flare of her Crohn's. Since admission she reports she has continued to have a little bit of diarrhea and she is continuing to pass gas. 08/15/2024: Her abdominal pain has resolved. She has had no pain medication overnight. She has had some diarrhea stool during the night. She is tolerating clear liquids. Time Spent with Patient Time attestation: Total time spent providing and/or coordinating discharge services: 45 minutes Exam Const: Vital Signs, click to edit/add: Vital Signs - 24 hr 08/14/24 11:00 08/14/24 15:00 08/14/24 15:00 Temperature 98.8 F 98.8 F Pulse Rate [Pulse Oximeter] 81 89 89 Respiratory Rate 18 18 18 Blood Pressure [Ri ght Arm] 99/57 L 116/69 Pulse Oximetry 95 93 Oxygen Delivery Me thod Room Air Room Air 08/14/24 19:00 08/14/24 23:00 08/15/24 03:00 Temperature 97.9 F 97.9 F 98.3 F Pulse Rate [Pulse Oximeter] 88 85 79 Respiratory Rate 17 18 18 Blood Pressure [Ri ght Arm] 116/58 L 100/61 98/53 L Pulse Oximetry 94 94 96 Oxygen Delivery Me thod Room Air Room Air Room Air 08/15/24 07:00 Temperature 98.1 F Pulse Rate [Pulse Oximeter] 90 Respiratory Rate 18 Blood Pressure [Ri ght Arm] 121/73 Pulse Oximetry 97 Oxygen Delivery Me thod Room Air Documenting provider has reviewed patient's vital signs: yes DS: Data Data Completed and Pending Labs on day of discharge: Labs from last 24 hours 08/15/24 06:09 WBC 12.29 H RBC 4.05 Hgb 11.9 L Hct 35.8 MCV 88 MCH 29 MCHC 33 Plt Count 249 Sodium 140 Potassium 3.8 Chloride 111 Carbon Dioxide 24 Anion Gap 5 L BUN 13 Creatinine 0.7 Estimated Creat Clear 74.23 Estimated GFR 101 Glucose 94 Calcium 8.1 L C-Reactive Protein 0.[address] scan - abdomen: Radiologist's impression: INDICATION: Abdominal pain. History of Crohn`s. TECHNIQUE: CT abdomen and pelvis acquired with 89 cc Isovue 370 IV contrast. COMPARISON: CT abdomen pelvis 10/16/2013, abdominal radiographs 11/30/2020. FINDINGS: Lower chest: Unremarkable. Liver: Hepatic steatosis. Gallbladder and bile ducts: Cholecystectomy. No suspicious biliary dilatation. Pancreas: Unremarkable. Spleen: Unremarkable. Adrenal glands: Unremarkable. Kidneys: Symmetric renal enhancement. No hydronephrosis or hydroureter. No urinary calculi. GI tract: Multiple loops of mildly prominent fluid-filled small bowel with transition to collapsed small bowel loop within the right lower quadrant (series 2, image 79). Vasculature: Grossly patent vasculature. No abdominal aortic aneurysm. Lymph nodes: No suspicious lymphadenopathy. Peritoneum/Abdominal Wall: No ascites or pneumoperitoneum. No acute abdominal wall abnormality. Pelvis: Normal bladder. No suspicious adnexal mass. Bones: No acute abnormality. IMPRESSION: 1. Probable small bowel obstruction with transition point noted within the right lower quadrant. Discharge Plan Discharge Disposition: Home, Self-Care Date of Admission: 08/13/24 23:28 Attending Provider on Discharge: Jonnie Dawson Consulting Providers: Ruth Ferrera; Rao Shi; Maribell Radford Primary Care Provider: Alyisa Buck Condition: Stable Anticipated Discharge Date/Time: 08/15/24 13:00 Discharge Medications: New prednisone 10 mg tablet 10 mg PO DIRECTED Qty: 32 0RF Rx Instructions: Take 40 mg daily for 3 days, then 30 mg daily for 3 days, then 20 mg daily for 3 days, than 10 mg daily for 3 days, then 5 mg daily for 4 days. Continued estradiol 0.5 mg tablet 0.5 mg PO DIRECTED Rx Instructions: sunday gabapentin 300 mg capsule 300 mg PO HS Patient Comments: TAKE 1 CAPSULE BY MOUTH EVERYDAY AT BEDTIME ketoconazole 2 % shampoo 1 applic TOPICAL DIRECTED Patient Comments: WASH SCALP TWICE WEEKLY, LATHER AND LET SIT 3-5MIN, THEN RINSE. spironolactone 50 mg tablet 50 mg PO DAILY Patient Comments: TAKE ONE TABLET BY MOUTH DAILY WITH A FULL GLASS OF WATER. infliximab [Remicade] 100 mg recon soln 400 mg IV Q8W biotin 1 mg capsule 1 mg PO DAILY Discharge Orders: Discharge Order (Routine); Ordered 08/15/24 Ordered By: Jonnie Dawson Activity Level: No Restrictions Discharge Diet: Regular and Low Fiber Follow Up Appointments: Jose Angel Mendes MD [Staff Physician, Gastroenterology] Referral Note: Follow-up in 3-4 weeks. Alysia Buck MD [Primary Care Provider, Family Practice] Referral Note: Follow-up in 2 weeks at previously scheduled appointment Forms: [employer] Info Instructions
[2024-08-15] MEDS: SODIUM CHLORIDE 0.9 % (FLUSH) 10 ML SYRINGE 5 ML IVF (08:52)
[2024-08-15] MEDS: estradioL 1 MG TABLET 0.5 MG PO (08:52)
[2024-08-15] MEDS: SPIRONOLACTONE 25 MG TABLET 50 MG PO (08:52)
--- NOTE | 2024-08-15 09:10 | PM.GSCN ---
History of Present Illness Consult details Date Seen: 08/15/24 Consult date: 08/15/24 Narrative: 54-year-old female was admitted to the hospital with abdominal pain and I was asked by Dr. Dawson to see him in consultation. Patient states that on Sunday she started vomiting. She had abdominal pain going across her abdomen. She was passing gas and having liquid bowel movements. Patient has a history of Crohn's and is on Remicade. Her last injection was at the beginning of July. Patient felt better after vomiting however later during the day at work she developed more nausea and vomiting. She decided to come to the emergency room. Patient's last episode of small-bowel obstruction was approximately 6-7 years ago. 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 Upon her workup in the emergency room she was found to have normal WBC. An abdominal CT was obtained that showed dilated loops of small intestine with possible transition point in the right lower quadrant. There was no free air or free fluid. Patient states that now she has no abdominal pain. She continues to pass gas and continues to have liquid bowel movements. Review of Systems Narrative: General: no fevers HENT: no problems swallowing CV: no shortness of breath Resp: no cough GI: No nausea, vomiting, abdominal pain : no dysuria, no increased urinary frequency, no hematuria Skin: no new rashes Musculoskeletal: no back pain Neuro: no muscle weakness Psyche: no depression, no anxiety PFSH PFS Medical History Hair loss ?L65.9 - Nonscarring hair loss, unspecified (ICD-10) Chronic pain ?G89.29 - Other chronic pain (ICD-10) Surgical History History of hernia repair ?Z98.890 - Other specified postprocedural states (ICD-10) ?Z87.19 - Personal history of other diseases of the digestive system (ICD-10) Hx of cholecystectomy ?Z90.49 - Acquired absence of other specified parts of digestive tract (ICD-10) History of resection of terminal ileum ?Z98.890 - Other specified postprocedural states (ICD-10) ?Z90.49 - Acquired absence of other specified parts of digestive tract (ICD-10) History of appendectomy ?Z90.49 - Acquired absence of other specified parts of digestive tract (ICD-10) History of hysterectomy ?Z90.710 - Acquired absence of both cervix and uterus (ICD-10) Social History What is your current living situation?: I presently have a place to live Problems where you live: no known problems Problems where you live details: n/a In the past 12 months, utilities in danger of being shut off: no In past 12 months, lack of transportation kept you from medical appts, meetings, work, or getting things needed for daily living: no In the past 12 mos, have been you worried that your food would run out before you had money to buy more?: never true In the past 12 mos, the food you bought just didn't last and you didn't have money to buy more?: never true Highest level of school completed/degree received: high school graduate Smoking Status: Never smoker Do you use any of these nicotine containing products: None How often do you have a drink containing alcohol: never AUDIT-C Alcohol total score: 0 Non-prescribed substance use: denies use Caffeine: Yes How often does anyone, including family, friends and others, physically hurt you: never How often does anyone, including family, friends and others, insult or talk down to you: never How often does anyone, including family, friends and others, threaten you with harm: never How often does anyone, including family, friends and others, scream or curse at you: never service: No Meds Home Medications and Allergies Home Medications ?Medication ?Instructions ?Recorded ?Confirmed ?Type estradiol 0.5 mg tablet 0.5 mg PO DIRECTED 09/22/21 08/13/24 History gabapentin 300 mg capsule 300 mg PO HS 09/22/21 08/14/24 History ketoconazole 2 % shampoo 1 applic topical DIRECTED 09/22/21 08/13/24 History spironolactone 50 mg tablet 50 mg PO DAILY 09/22/21 08/13/24 History infliximab 100 mg intravenous 400 mg IV Q8W 08/13/24 08/14/24 History solution (Remicade) biotin 1 mg capsule 1 mg PO DAILY 08/14/24 08/14/24 History prednisone 10 mg tablet 10 mg PO DIRECTED #32 tabs 08/15/24 Rx Allergies Allergy/AdvReac Type Severity Reaction Status Date / Time Cephalosporins Allergy Severe hives Verified 08/13/24 21:23 morphine Allergy Severe hives Verified 08/13/24 21:23 Quinolones Allergy Severe hives Verified 08/13/24 21:23 latex Allergy Severe blisters Uncoded 08/13/24 21:23 sulfa drugs Allergy Severe hives Uncoded 08/13/24 21:23 meperdine Allergy Intermediate reddened Uncoded 08/13/24 21:23 veins adhesives Allergy Mild Rash Uncoded 08/13/24 21:23 Exam Narrative: Exam Narrative: General appearance: Alert, cooperative, and in no distress Pulmonary: Chest symmetric, lungs clear bilaterally Cardiovascular Heart: Regular rate and rhythm, S1, S2, no murmurs/rubs/gallops Gastrointestinal Abdominal: soft, not distended, mild discomfort in the right lower quadrant, per patient this is her normal discomfort. Skin: Normal skin color, texture, and turgor. No rashes or lesions. Psychiatric: Alert, cooperative, normal affect. Const: Vital Signs, click to edit/add: Vital Signs - 24 hr 08/14/24 11:00 08/14/24 15:00 08/14/24 15:00 Temperature 98.8 F 98.8 F Pulse Rate [Pulse Oximeter] 81 89 89 Respiratory Rate 18 18 18 Blood Pressure [Ri ght Arm] 99/57 L 116/69 Pulse Oximetry 95 93 Oxygen Delivery Me thod Room Air Room Air 08/14/24 19:00 08/14/24 23:00 08/15/24 03:00 Temperature 97.9 F 97.9 F 98.3 F Pulse Rate [Pulse Oximeter] 88 85 79 Respiratory Rate 17 18 18 Blood Pressure [Ri ght Arm] 116/58 L 100/61 98/53 L Pulse Oximetry 94 94 96 Oxygen Delivery Me thod Room Air Room Air Room Air 08/15/24 07:00 08/15/24 07:00 Temperature 98.1 F Pulse Rate [Pulse Oximeter] 90 Respiratory Rate 18 18 Blood Pressure [Ri ght Arm] 121/73 Pulse Oximetry 97 Oxygen Delivery Me thod Room Air Results Labs Labs: Abnormal lab results 08/15/24 Range/Units 06:09 WBC 12.29 H (4.50-11.00) K/uL Hgb 11.9 L (12.0-16.0) gm/dL Anion Gap 5 L (7-15) mEq/L Calcium 8.1 L (8.4-10.6) mg/dL Diabetes panel 08/15/24 Range/Units 06:09 Sodium 140 (135-149) mmol/L Potassium 3.8 (3.6-5.1) mmol/L Chloride 111 (96-114) mmol/L Carbon Dioxide 24 (20-32) mmol/L BUN 13 (7-30) mg/dL Creatinine 0.7 (0.5-1.5) mg/dL Glucose 94 (60-115) mg/dL Calcium 8.1 L (8.4-10.6) mg/dL Calcium panel 08/15/24 Range/Units 06:09 Calcium 8.1 L (8.4-10.6) mg/dL Pituitary panel 08/15/24 Range/Units 06:09 Sodium 140 (135-149) mmol/L Potassium 3.8 (3.6-5.1) mmol/L Chloride 111 (96-114) mmol/L Carbon Dioxide 24 (20-32) mmol/L BUN 13 (7-30) mg/dL Creatinine 0.7 (0.5-1.5) mg/dL Glucose 94 (60-115) mg/dL Calcium 8.1 L (8.4-10.6) mg/dL Adrenal panel 08/15/24 Range/Units 06:09 Sodium 140 (135-149) mmol/L Potassium 3.8 (3.6-5.1) mmol/L Chloride 111 (96-114) mmol/L Carbon Dioxide 24 (20-32) mmol/L BUN 13 (7-30) mg/dL Creatinine 0.7 (0.5-1.5) mg/dL Glucose 94 (60-115) mg/dL Calcium 8.1 L (8.4-10.6) mg/dL All other labs normal. Progress Note:A&P Assessment and plan (1) Small bowel obstruction: Status: Acute Plan 54-year-old female admitted to the hospital with small-bowel obstruction currently resolving with conservative therapy. Patient is doing well. She tolerated clears yesterday. Her pain is now resolved. She has normal amount of discomfort in the right lower quadrant that she has had since her surgery 15 years ago. She continues to pass gas and have liquid bowel movements. I discussed with the patient that she could have had gastroenteritis versus partial small bowel obstruction. I recommended to continue slowly advancing her diet. Okay to discharge from surgery standpoint.
--- NOTE | 2024-08-15 13:56 | PC.NURSE ---
End of Shift: Patient pleasant and cooperative, A&O. VSS, afebrile. SpO2 maintained above 90% on RA. Tolerating full liquid diet. denies pain and n/v. IV removed with tip intact. discharge instructions provided, all questions answered.
== END 2024-08-15 11:26 | disposition home or self-care (01) ==
LOC: ED 23:02 → MEDSURG 23:29
PROVIDERS: Physician Assistant; Admitting Provider Family Medicine; Emergency Provider Family Medicine; PCP Family Medicine; Visit Provider Family Medicine
DX: K56.609 Unspecified intestinal obstruction, unspecified as to partial versus complete obstruction (principal); K50.90 Crohn's disease, unspecified, without complications; R10.9 Unspecified abdominal pain; R11.10 Vomiting, unspecified; R19.7 Diarrhea, unspecified; R11.0 Nausea; G89.29 Other chronic pain; Z87.19 Personal history of other diseases of the digestive system
CPT/HCPCS: 36415; 74177; 80048; 80076; 85025; 85027; 86140; 94761; 96361; 96374; 96375; 96376; 99284; 99285; A9270; G0378; J0780; J1171; J2060; J2405; J2919; J7030; Q9967